=== PATIENT | female | born 1980 | race Caucasian/White ===

== ENCOUNTER 2016-07-21 06:34 | Emergency (ER) | payer OTHER ==
[~2016-07-21 06:34] MED LIST: /AUGM875TA; /PROM25SU; IBUP80TA PO; IMITREX50 PO; MAALSUS PO; MACR100C3 PO; MAXALT10 PO; MAXALYMLT1 PO; PERC5TAB8; PERCOCET PO; PHEN200T14 PO; PNV-CAP5 PO
[2016-07-21] MEDS ORDERED: ONDANSETRON 4MG/2ML VIAL (J2405) As Ordered ONE (07:38)
[2016-07-21] MEDS ORDERED: KETOROLAC 30 MG/ML VIAL (J1885) As Ordered ONE (07:38)
[2016-07-21 07:47] LABS: BASO % 0.8 % (0.0-1.0); EOS # 0.2 K/mm3 (0.0-0.50); EOS % 4.4 % (0.0-3.0); LARGE UNSTAINED CELL # 0.2 K/mm3 (0.0-0.4); LARGE UNSTAINED CELL % 2.8 % (0.0-4.0); LYMPH # 1.7 K/mm3 (1.5-4.5); LYMPH % 30.9 % (24.0-44.0); MEAN CORPUSCULAR HEMOGLOBIN 26.5 pg (27.0-33.0); MEAN CORPUSCULAR HGB CONC 31.6 g/dl (32.0-36.5); MEAN CORPUSCULAR VOLUME 83.8 fl (80.0-96.0); MONO # 0.3 K/mm3 (0.0-0.8); NEUTROPHILS # 3.1 K/mm3 (1.8-7.7); NEUTROPHILS % 55.2 % (36.0-66.0); PLATELET COUNT, AUTOMATED 211 k/mm3 (150-450); RED CELL DISTRIBUTION WIDTH 14.5 % (11.5-14.5); WHITE BLOOD COUNT 5.6 K/mm3 (4.0-10.0)
[2016-07-21 08:01] LABS: ANION GAP 5 MEQ/L (8-16); BLOOD UREA NITROGEN 12 MG/DL (7-18); CALCIUM LEVEL 8.2 MG/DL (8.5-10.1); CARBON DIOXIDE LEVEL 29 MEQ/L (21-32); CHLORIDE LEVEL 109 MEQ/L (98-107); CREATININE FOR GFR 0.64 MG/DL (0.55-1.02); GLOMERULAR FILTRATION RATE > 60.0 (>60); GLUCOSE, FASTING 91 MG/DL (70-105); POTASSIUM SERUM 3.7 MEQ/L (3.5-5.1); SODIUM LEVEL 143 MEQ/L (136-145)
--- NOTE | 2016-07-21 08:20 | REPUSA ---
CLINICAL HISTORY: Abdominal pain. TECHNIQUE: Multiple axial, sagittal and coronal CT images were obtained through the abdomen and pelvi s without administration of oral or IV contrast material. COMMENTS: Comparison is made to the prior exam performed on 01/03/2014. The liver is of uniform attenuation without mass or defect. There is no intra or extrahepatic biliary ductal dilatation. The spleen is normal. The gallbladder is surgically absent. The pancreas is of no rmal contour and attenuation characteristics. There is no evidence of adrenal mass. 2 obstructing stones in the distal aspect of the left ureter with the largest measuring 4.5 mm. Mild left hydroureteronephrosis. There is no evidence for appendicitis. There is no bowel wall thickening. No evidence for small or la rge bowel obstruction. There is no evidence of abdominal ascites or lymphadenopathy. There is no evidence of intrinsic or extrinsic bladder mass. There is no pelvic ascites or lymphadeno raymundo. Thickened bladder. Images of the lung bases show no evidence of pleural or parenchymal mass. There are no pleural effusi ons. The bony structures are free of lytic or blastic lesions. Multilevel degenerative changes are seen in volving the thoracolumbar spine. Scattered calcifications are seen involving the aorta and major branches compatible with atherosclero sis. IMPRESSION: 2 obstructing stones in the distal left ureter. Mild left hydroureteronephrosis. Surgically absent gallbladder. Left nephrolithiasis. Moderate large bowel fecal stasis. Thank you for your kind referral of this patient.
[2016-07-21 08:27] LABS: ALBUMIN 3.2 GM/DL (3.2-5.2); ALBUMIN/GLOBULIN RATIO 0.94 (1.00-1.93); ALKALINE PHOSPHATASE 50 U/L (45-117); ALT/SGPT 14 U/L (12-78); AST/SGOT 6 U/L (15-37); BILIRUBIN,DIRECT < 0.1 MG/DL (0.0-0.2); BILIRUBIN,TOTAL 0.4 MG/DL (0.2-1.0); TOTAL PROTEIN 6.6 GM/DL (6.4-8.2)
[2016-07-21] MEDS ORDERED: MORPHINE 4 MG/ML 1ML SYRINGE As Ordered ONE (08:47)
--- NOTE | 2016-07-21 09:50 | EDDOCDS ---
Physician Documentation [facility] Name: Perla Pantoja Age: 35 yrs Sex: Female : 1980 Arrival Date: 07/21/2016 Time: 06:34 Bed I5 / M5 Private MD: Disposition: 07/21/16 09:32 Discharged to Home/Self Care. Impression: Hydronephrosis with renal and ureteral calculous obstruction - 2 left distal ureteral stones, largest 4.5 mm. - Condition is Stable. - Discharge Instructions: Kidney Stones. - Prescriptions for Ibuprofen 800 mg Oral Tablet - take 1 tablet by ORAL route every 8 hours As needed take with food; 30 tablet. Percocet 5- 325 mg Oral Tablet - take 1 tablet by ORAL route every 6 hours As needed MDD: 4 tabs; 20 tablet. Flomax 0.4 mg Oral Capsule, Sust. Release 24 hr - take 1 capsule by ORAL route once daily 1/2 hour following the same meal each day; 30 capsule. ZOFRAN ODT 4 mg - dissolve 1 tablet by ORAL route 4 times per day As needed do not chew, do not swallow whole; 10 tablet. - Medication Reconciliation, Local Pharmacy Hours, Work Release Form - 1 day form. - Follow up: Chelsie Scales MD; When: Call to arrange an appointment; Reason: Recheck today's complaints. Follow up: Emergency Department; When: As needed; Reason: Worsening of conditions. - Problem is new. - Symptoms have improved. Historical: - Allergies: No known drug Allergies; - Home Meds: 1. none - PMHx: Kidney stones; - PSHx: ; Cholecystectomy; gall bladder stent; - Social history: Smoking status: Patient states was never smoker of tobacco. No barriers to communication noted, The patient speaks fluent Martiniquais, Speaks appropriately for age. - Family history: Not pertinent. - : The pt / caregiver states he / she is not on anticoagulants. Home medication list is obtained from the patient. 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 5 in. (165.10 cm); 08:13 BP 144 / 88; Pulse 66; Resp 20; Temp 98.0; Pulse Ox 99% ; Pain 6/10; jam1 09:24 BP 156 / 79; Pulse 65; Resp 18; Temp 97.0; Pulse Ox 99% ; Pain 4/10; jam1 06:43 Body Mass Index 39.94 (108.86 kg, 165.10 cm) cz MDM: 07:05 UCG by Nursing ordered. ar2 07:06 UA Ordered. EDMS 07:06 Urine Culture Ordered. EDMS 07:14 IV Saline Lock ordered. ar2 07:14 ketorolac 30 mg IVP once ordered. ar2 07:14 NS 0.9% 1000 ml IV at bolus once ordered. ar2 07:14 Ondansetron 4 mg IVP once ordered. ar2 07:15 CBC with Diff Ordered. EDMS 07:15 MED Profile Ordered. EDMS 07:15 CT ABD & PELVIS: No Contrast Ordered. EDMS 07:56 Financial registration complete. lg 08:07 CBC with Diff Reviewed. ar2 08:07 MED Profile Reviewed. ar2 08:07 UA Reviewed. ar2 08:17 LIPASE Ordered. EDMS 08:17 LIVER PROFILE Ordered. EDMS 08:38 MED Profile Reviewed. ar2 08:38 LIVER PROFILE Reviewed. ar2 08:38 LIPASE Reviewed. ar2 08:45 morphine 4 mg IVP once ordered. ar2 09:01 [facility] Payment Agreement was scanned into [employer] and attached to record. lg 09:31 Dispense Urine Strainer ordered. ar2 09:34 CT ABD & PELVIS: No Contrast Reviewed. ar2 Point of Care Testing: Urine : 07:19 hCG Reading: Negative; jam1 Ranges: Administered Medications: 07:42 Drug: ketorolac 30 mg [ketorolac 30 mg/mL (1 mL) injection solution (1 mL)] Route: IVP; dls Site: left antecubital; 09:49 Follow up: Response: No Adverse Reaction; Pain is decreased ttb 07:42 Drug: NS 0.9% 1000 ml [sodium chloride 0.9 % intravenous solution] Route: IV; Rate: dls bolus; Site: left antecubital; 09:49 Follow up: IV Status: Completed infusion; IV Intake: 1000ml ttb 07:42 Drug: Ondansetron 4 mg Route: IVP; Site: left antecubital; dls 09:49 Follow up: Response: Nausea is resolved; No Adverse Reaction ttb 08:52 Drug: morphine 4 mg [morphine 4 mg/mL intravenous cartridge (1 mL)] Route: IVP; Site: dls left antecubital; 09:48 Follow up: Response: Confirmed pt not driving.; No Adverse Reaction; Pain is decreased ttb Signatures: Dispatcher [employer] EDMS Lexa Wang RN RN cz Eric Oconnor, Don Reg lg Nish Campuzano PA-Graciela PA-Graciela ar2 Nova Mcgregor RN RN pml Conner, Teresa, RN RN ttb Scott, Debra RN dls The chart was reviewed and I authenticate all verbal orders and agree with the evaluation and treatment provided.Corrections: (The following items were deleted from the chart) 08:17 08:14 LIVER PROFILE+LAB ordered. EDMS EDMS 08:17 08:14 LIPASE+LAB ordered. EDMS EDMS Attachments: 09:01 [facility] Payment Agreement lg MTDD
--- NOTE | 2016-07-21 09:50 | EDDOCDS ---
Nurse's Notes [facility] Name: Perla Pantoja Age: 35 yrs Sex: Female : 1980 Arrival Date: 07/21/2016 Time: 06:34 Bed I5 / M5 Private MD: Diagnosis: Hydronephrosis with renal and ureteral calculous obstruction-2 left distal ureteral stones, largest 4.5 mm Presentation: 07/21 06:38 Presenting complaint: Patient states: she started with urethral area pain this morning cz pain began last night around 2300. pt states history of kidney stones last one around 7 months ago. Acute neurological deficits are not present. Mechanism of Injury: No Mechanism of Injury. Adult Sepsis Screening: The patient does not have new or worsening altered mentation. Patient's respiratory rate is less than 22. Systolic blood pressure is greater than 100. Patient has a qSOFA score of 0- Negative Sepsis Screen. Suicide/Homicide risk assessment- the patient denies having any suicidal and/or homicidal ideations and does not present with any other emotional, behavioral or mental health complaints. Status: Patient is not a custodial services manager or dependent. Transition of care: patient was not received from another setting of care. 06:38 Acuity: LIZETH Level 3 cz 06:38 Method Of Arrival: Walkin/Carried/Asstd cz Triage Assessment: 06:43 General: Appears distressed, uncomfortable. Pain: Location: pelvis Pain currently is 8 cz out of 10 on a pain scale. At worst was 9 out of 10 on a pain scale. HIV screening NA for this visit Offered previously. 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 none - PMHx: Kidney stones; - PSHx: ; Cholecystectomy; gall bladder stent; - Social history: Smoking status: Patient states was never smoker of tobacco. No barriers to communication noted, The patient speaks fluent Bahraini, Speaks appropriately for age. - Family history: Not pertinent. - : The pt / caregiver states he / she is not on anticoagulants. Home medication list is obtained from the patient. 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 Screenin:19 Screening information is obtained from the patient. Primary language is Bahraini. Fall jam1 risk: No risks identified. Assistance ADL's: requires no assistance with activities of daily living. Abuse/DV Screen: The patient / caregiver reports he/she is: not in a situation that causes fear, pain or injury. Nutritional screening: No deficits noted. Exposure Risk Screening: None identified. Advance Directives: Currently, there is no health care proxy. There is no active DNR order. There is no living will. There is no Power of Panel Instrument Repairer. Advance directive information has not previously been placed in an [facility] medical record. Further advance directive information is declined. home support is adequate. Assessment: 07:39 General: Appears in no apparent distress, comfortable, Behavior is appropriate for age, pml cooperative. Pain: Location: pelvis Pain currently is 9 out of 10 on a pain scale. Neurological: Level of Consciousness is awake, alert, Oriented to person, place, time. Cardiovascular: Capillary refill < 3 seconds. Respiratory: Airway is patent Respiratory effort is even, unlabored. GI: Abdomen is non- distended obese. GI: Reports nausea. : Reports pain when bladder is full - states "I can't hold onto any fluids". Derm: Skin is pink, warm & dry. Musculoskeletal: Circulation, motion, and sensation intact Capillary refill < 3 seconds. 08:53 General: Pts pain is 7/10 IV infusing well site clear re-medicated pt per order.. dls 09:46 Reassessment: Patient appears in no apparent distress at this time. Patient states ttb feeling better. Patient states symptoms have improved. pt given urine strainer. States she would prefer to pass on her own as she has done before. Comfortable going home. . General: Appears in no apparent distress. Neurological: Level of Consciousness is awake, alert. Respiratory: Airway is patent Respiratory effort is even, unlabored. GI: Denies nausea, vomiting. Vital Signs: 06:43 BP 133 / 72; Pulse 70; Resp 19; Temp 97.9; Pulse Ox 100% on R/A; Weight 108.86 kg; cz Height 5 ft. 5 in. (165.10 cm); 08:13 BP 144 / 88; Pulse 66; Resp 20; Temp 98.0; Pulse Ox 99% ; Pain 6/10; jam1 09:24 BP 156 / 79; Pulse 65; Resp 18; Temp 97.0; Pulse Ox 99% ; Pain 4/10; jam1 06:43 Body Mass Index 39.94 (108.86 kg, 165.10 cm) cz Vitals: 06:43 Log In Time: July 21, 2016 at 06:34. cz ED Course: 06:35 Patient visited by Suzanne Louis. gjb 06:35 Patient moved to Waiting gjb 06:38 Patient moved to Triage 1 cz 06:43 Triage Initiated cz 06:45 Patient moved to Pre RCE cz 06:58 Patient moved to I5 / M5 jam1 07:05 Pt greeted and oriented to ED. Patient advised of names of staff involved in care, jam1 location of call albert, wait times and NPO status. Patient has correct armband on for positive identification. Placed in gown. Bed in low position. Call light in reach. Side rails up X 1. Door closed. 07:10 Nish Campuzano PA-C is PHCP. ar2 07:10 Stephen Bales DO is Attending Physician. ar2 07:11 Attending Physician role handed off by Stephen Bales DO ar2 07:11 Sukh Wood MD is Attending Physician. ar2 07:11 Patient visited by Nish Campuzano PA-C. ar2 07:12 Urine Culture Sent. jam1 07:12 UA Sent. jam1 07:39 The patient / caregiver is instructed regarding the plan of care and ED course. pml 07:39 Inserted peripheral IV: 20gauge IV in left antecubital area and blood collected. pml Patient tolerated the procedure well. 07:40 Patient visited by Nova Mcgregor RN. pml 08:41 CT ABD & PELVIS: No Contrast Returned. EDMS 08:45 Patient visited by Ivette Boone RN. dls 09:00 Patient name changed from Perla\\S\\Lita\\S\\Pietramala\\S\\ to Perla\\S\\L\\S\\Pietramala. EDMS 09:01 [facility] Agreement was scanned into [employer] and attached to record. lg 09:31 Chelsie Scales MD is Referral Physician. ar2 09:46 Discontinued IV lock intact, bleeding controlled, pressure dressing applied, No ttb redness/swelling at site. No procedures done that require assistance. Labs drawn. (by ED staff). Urine collected. Clean catch specimen. Administered Medications: 07:42 Drug: ketorolac 30 mg [ketorolac 30 mg/mL (1 mL) injection solution (1 mL)] Route: IVP; dls Site: left antecubital; 09:49 Follow up: Response: No Adverse Reaction; Pain is decreased ttb 07:42 Drug: NS 0.9% 1000 ml [sodium chloride 0.9 % intravenous solution] Route: IV; Rate: dls bolus; Site: left antecubital; 09:49 Follow up: IV Status: Completed infusion; IV Intake: 1000ml ttb 07:42 Drug: Ondansetron 4 mg Route: IVP; Site: left antecubital; dls 09:49 Follow up: Response: Nausea is resolved; No Adverse Reaction ttb 08:52 Drug: morphine 4 mg [morphine 4 mg/mL intravenous cartridge (1 mL)] Route: IVP; Site: dls left antecubital; 09:48 Follow up: Response: Confirmed pt not driving.; No Adverse Reaction; Pain is decreased ttb Point of Care Testing: Urine : 07:19 hCG Reading: Negative; jam1 Ranges: Intake: 09:49 IV: 1000.00ml; Total: 1000.00ml. ttb Order Results: Lab Order: UA; SPEC'M 07/21/16 07:09 Test: APPEARANCE, URINE; Value: CLEAR; Range: CLEAR; Status: F Test: COLOR, URINE; Value: YELLOW; Range: YELLOW; Status: F Test: PH,URINE; Value: 6.0; Range: 5.0-9.0; Units: UNITS; Status: F Test: SPECIFIC GRAVITY URINE AUTO; Value: 1.018; Range: 1.002-1.035; Status: F Test: PROTEIN, URINE AUTO; Value: NEGATIVE; Range: NEGATIVE; Units: mg/dL; Status: F Test: GLUCOSE, URINE (UA) AUTO; Value: NEGATIVE; Range: NEGATIVE; Units: mg/dL; Status: F Test: KETONE, URINE AUTO; Value: NEGATIVE; Range: NEGATIVE; Units: mg/dL; Status: F Test: UROBILINOGEN, URINE AUTO; Value: 0.2; Range: 0.0-2.0; Units: mg/dL; Status: F Test: BILIRUBIN, URINE AUTO; Value: NEGATIVE; Range: NEGATIVE; Status: F Test: NITRITE, URINE AUTO; Value: NEGATIVE; Range: NEGATIVE; Status: F Test: LEUKOCYTE ESTERASE, URINE AUTO; Value: NEGATIVE; Range: NEGATIVE; Status: F Test: BLOOD, URINE BLOOD; Value: NEGATIVE; Range: NEGATIVE; Status: F Test: WBC, URINE AUTO; Value: 1; Range: 0-3; Units: /HPF; Status: F Test: RBC, URINE AUTO; Value: 3; Range: 0-3; Units: /HPF; Status: F Test: BACTERIA, URINE AUTO; Value: NEGATIVE; Range: NEGATIVE; Status: F Test: SQUAMOUS EPITHELIAL CELL UR AU; Value: 0; Range: 0-6; Units: /HPF; Status: F Test: MUCUS, URINE; Value: SMALL; Range: NEGATIVE; Status: F Test: HYALINE CAST, URINE AUTO; Value: 0; Range: 0-1; Units: /LPF; Status: F Lab Order: CBC with Diff; SPEC'M 07/21/16 07:38 Test: WHITE BLOOD COUNT; Value: 5.6; Range: 4.0-10.0; Units: K/mm3; Status: F Test: RED BLOOD COUNT; Value: 3.86; Range: 4.00-5.40; Abnormal: Below low normal; Units: M/mm3; Status: F Test: HEMOGLOBIN; Value: 10.3; Range: 12.0-16.0; Abnormal: Below low normal; Units: g/dl; Status: F Test: HEMATOCRIT; Value: 32.4; Range: 36.0-47.0; Abnormal: Below low normal; Units: %; Status: F Test: MEAN CORPUSCULAR VOLUME; Value: 83.8; Range: 80.0-96.0; Units: fl; Status: F Test: MEAN CORPUSCULAR HEMOGLOBIN; Value: 26.5; Range: 27.0-33.0; Abnormal: Below low normal; Units: pg; Status: F Test: MEAN CORPUSCULAR HGB CONC; Value: 31.6; Range: 32.0-36.5; Abnormal: Below low normal; Units: g/dl; Status: F Test: RED CELL DISTRIBUTION WIDTH; Value: 14.5; Range: 11.5-14.5; Units: %; Status: F Test: PLATELET COUNT, AUTOMATED; Value: 211; Range: 150-450; Units: k/mm3; Status: F Test: NEUTROPHILS %; Value: 55.2; Range: 36.0-66.0; Units: %; Status: F Test: LYMPH %; Value: 30.9; Range: 24.0-44.0; Units: %; Status: F Test: MONO %; Value: 6.0; Range: 0.0-5.0; Abnormal: Above high normal; Units: %; Status: F Test: EOS %; Value: 4.4; Range: 0.0-3.0; Abnormal: Above high normal; Units: %; Status: F Test: BASO %; Value: 0.8; Range: 0.0-1.0; Units: %; Status: F Test: LARGE UNSTAINED CELL %; Value: 2.8; Range: 0.0-4.0; Units: %; Status: F Test: NEUTROPHILS #; Value: 3.1; Range: 1.8-7.7; Units: K/mm3; Status: F Test: LYMPH #; Value: 1.7; Range: 1.5-4.5; Units: K/mm3; Status: F Test: MONO #; Value: 0.3; Range: 0.0-0.8; Units: K/mm3; Status: F Test: EOS #; Value: 0.2; Range: 0.0-0.50; Units: K/mm3; Status: F Test: BASO #; Value: 0.0; Range: 0.0-0.2; Units: K/mm3; Status: F Test: LARGE UNSTAINED CELL #; Value: 0.2; Range: 0.0-0.4; Units: K/mm3; Status: F Lab Order: MED Profile; SPEC'M 07/21/16 07:38 Test: GLUCOSE, FASTING; Value: 91; Range: 70-105; Units: MG/DL; Status: F Test: BLOOD UREA NITROGEN; Value: 12; Range: 7-18; Units: MG/DL; Status: F Test: CREATININE FOR GFR; Value: 0.64; Range: 0.55-1.02; Units: MG/DL; Status: F Test: GLOMERULAR FILTRATION RATE; Value: > 60.0; Range: >60; Status: F Test: SODIUM LEVEL; Value: 143; Range: 136-145; Units: MEQ/L; Status: F Test: POTASSIUM SERUM; Value: 3.7; Range: 3.5-5.1; Units: MEQ/L; Status: F Test: CHLORIDE LEVEL; Value: 109; Range: 98-107; Abnormal: Above high normal; Units: MEQ/L; Status: F Test: CARBON DIOXIDE LEVEL; Value: 29; Range: 21-32; Units: MEQ/L; Status: F Test: ANION GAP; Value: 5; Range: 8-16; Abnormal: Below low normal; Units: MEQ/L; Status: F Test: CALCIUM LEVEL; Value: 8.2; Range: 8.5-10.1; Abnormal: Below low normal; Units: MG/DL; Status: F Test Note: ; Units are mL/min/1.73 m2 Chronic Kidney Disease Staging per NKF: Stage I & II GFR >=60 Normal to Mildly Decreased Stage III GFR 30-59 Moderately Decreased Stage IV GFR 15-29 Severely Decreased Stage V GFR <15 Very Little GFR Left ESRD GFR <15 on FORCE DISPATCHER Lab Order: LIPASE; SPEC'M 07/21/16 07:38 Test: LIPASE; Value: 193; Range: 73-393; Units: U/L; Status: F Lab Order: LIVER PROFILE; SPEC'M 07/21/16 07:38 Test: AST/SGOT; Value: 6; Range: 15-37; Abnormal: Below low normal; Units: U/L; Status: F Test: ALT/SGPT; Value: 14; Range: 12-78; Units: U/L; Status: F Test: ALKALINE PHOSPHATASE; Value: 50; Range: 45-117; Units: U/L; Status: F Test: BILIRUBIN,TOTAL; Value: 0.4; Range: 0.2-1.0; Units: MG/DL; Status: F Test: BILIRUBIN,DIRECT; Value: < 0.1; Range: 0.0-0.2; Units: MG/DL; Status: F Test: TOTAL PROTEIN; Value: 6.6; Range: 6.4-8.2; Units: GM/DL; Status: F Test: ALBUMIN; Value: 3.2; Range: 3.2-5.2; Units: GM/DL; Status: F Test: ALBUMIN/GLOBULIN RATIO; Value: 0.94; Range: 1.00-1.93; Abnormal: Below low normal; Status: F Radiology Order: CT ABD & PELVIS: No Contrast Test: CT ABD & PELVIS: No Contrast REASON FOR EXAMINATION: Renal colic; ; CLINICAL HISTORY: Abdominal pain.; TECHNIQUE: Multiple axial, sagittal and coronal CT images were obtained through the abdomen and pelvi; s without administration of oral or IV contrast material.; COMMENTS:; Comparison is made to the prior exam performed on 01/03/2014.; The liver is of uniform attenuation without mass or defect. There is no intra or extrahepatic biliary; ductal dilatation. The spleen is normal. The gallbladder is surgically absent. The pancreas is of no; rmal contour and attenuation characteristics. There is no evidence of adrenal mass.; 2 obstructing stones in the distal aspect of the left ureter with the largest measuring 4.5 mm. Mild; left hydroureteronephrosis.; There is no evidence for appendicitis. There is no bowel wall thickening. No evidence for small or la; rge bowel obstruction. There is no evidence of abdominal ascites or lymphadenopathy.; There is no evidence of intrinsic or extrinsic bladder mass. There is no pelvic ascites or lymphadeno; raymundo. Thickened bladder.; Images of the lung bases show no evidence of pleural or parenchymal mass. There are no pleural effusi; ons.; The bony structures are free of lytic or blastic lesions. Multilevel degenerative changes are seen in; volving the thoracolumbar spine.; Scattered calcifications are seen involving the aorta and major branches compatible with atherosclero; sis.; IMPRESSION:; 2 obstructing stones in the distal left ureter.; Mild left hydroureteronephrosis.; Surgically absent gallbladder.; Left nephrolithiasis.; Moderate large bowel fecal stasis.; Thank you for your kind referral of this patient.; ; Outcome: 09:32 Discharge ordered by Provider. ar2 09:46 Discharge Assessment: Patient awake, alert and oriented x 3. No cognitive and/or ttb functional deficits noted. Patient verbalized understanding of disposition instructions. Patient awake and alert. patient administered narcotics - yes. Pt provided with safe discharge. The following High Risk Discharge criteria are identified: None. Discharged to home ambulatory. Condition: good Condition: stable Condition: improved. Discharge instructions given to patient, Instructed on discharge instructions, follow up and referral plans. medication usage, no driving heavy equipment, diet, no drinking with medication, Demonstrated understanding of instructions, medications, no d/d with narcs, increase fluid intake, strain urine. Pt was receptive of discharge instructions/ teaching. Prescriptions given X 4, Work note provided to patient. CT Study completed. Property :Personal belongings accompany Pt. 09:49 Patient left the ED. ttb Signatures: Dispatcher [employer] EDIvette Engle RN RN dls Zecher, Calvin, RN RN cz Murphy, Jane, SENIOR SUSTAINABILITY CONSULTANT SENIOR SUSTAINABILITY CONSULTANT jam1 Eric Oconnor, Reg Reg lg Nish Campuzano, PA-C PA-C [email or web address] Nova Mcgregor RN RN pml Conner, Teresa, RN RN ttSuzanne Hernández ISABELLE
--- NOTE | 2016-07-23 10:51 | EDDOCDS ---
Physician Documentation [facility] Name: Perla Pantoja Age: 35 yrs Sex: Female : 1980 Arrival Date: 07/21/2016 Time: 06:34 Bed I5 / M5 Private MD: Disposition: 07/21/16 09:32 Discharged to Home/Self Care. Impression: Hydronephrosis with renal and ureteral calculous obstruction - 2 left distal ureteral stones, largest 4.5 mm. - Condition is Stable. - Discharge Instructions: Kidney Stones. - Prescriptions for Ibuprofen 800 mg Oral Tablet - take 1 tablet by ORAL route every 8 hours As needed take with food; 30 tablet. Percocet 5- 325 mg Oral Tablet - take 1 tablet by ORAL route every 6 hours As needed MDD: 4 tabs; 20 tablet. Flomax 0.4 mg Oral Capsule, Sust. Release 24 hr - take 1 capsule by ORAL route once daily 1/2 hour following the same meal each day; 30 capsule. ZOFRAN ODT 4 mg - dissolve 1 tablet by ORAL route 4 times per day As needed do not chew, do not swallow whole; 10 tablet. - Medication Reconciliation, Local Pharmacy Hours, Work Release Form - 1 day form. - Follow up: Chelsie Scales MD; When: Call to arrange an appointment; Reason: Recheck today's complaints. Follow up: Emergency Department; When: As needed; Reason: Worsening of conditions. - Problem is new. - Symptoms have improved. Historical: - Allergies: No known drug Allergies; - Home Meds: 1. none - PMHx: Kidney stones; - PSHx: ; Cholecystectomy; gall bladder stent; - Social history: Smoking status: Patient states was never smoker of tobacco. No barriers to communication noted, The patient speaks fluent Lebanese, Speaks appropriately for age. - Family history: Not pertinent. - : The pt / caregiver states he / she is not on anticoagulants. Home medication list is obtained from the patient. 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 5 in. (165.10 cm); 08:13 BP 144 / 88; Pulse 66; Resp 20; Temp 98.0; Pulse Ox 99% ; Pain 6/10; jam1 09:24 BP 156 / 79; Pulse 65; Resp 18; Temp 97.0; Pulse Ox 99% ; Pain 4/10; jam1 06:43 Body Mass Index 39.94 (108.86 kg, 165.10 cm) cz MDM: 07:05 UCG by Nursing ordered. ar2 07:06 UA Ordered. EDMS 07:06 Urine Culture Ordered. EDMS 07:14 IV Saline Lock ordered. ar2 07:14 ketorolac 30 mg IVP once ordered. ar2 07:14 NS 0.9% 1000 ml IV at bolus once ordered. ar2 07:14 Ondansetron 4 mg IVP once ordered. ar2 07:15 CBC with Diff Ordered. EDMS 07:15 MED Profile Ordered. EDMS 07:15 CT ABD & PELVIS: No Contrast Ordered. EDMS 07:56 Financial registration complete. lg 08:07 CBC with Diff Reviewed. ar2 08:07 MED Profile Reviewed. ar2 08:07 UA Reviewed. ar2 08:17 LIPASE Ordered. EDMS 08:17 LIVER PROFILE Ordered. EDMS 08:38 MED Profile Reviewed. ar2 08:38 LIVER PROFILE Reviewed. ar2 08:38 LIPASE Reviewed. ar2 08:45 morphine 4 mg IVP once ordered. ar2 09:01 [facility] [place] Payment Agreement was scanned into [employer] and attached to record. lg 09:31 Dispense Urine Strainer ordered. ar2 09:34 CT ABD & PELVIS: No Contrast Reviewed. ar2 17:19 Radiology Report was scanned into [employer] and attached to record. kf3 20:45 T-Sheet-- Draft Copy was scanned into [employer] and attached to record. klr 07/23 07:29 Urine Culture Reviewed. sd1 Point of Care Testing: Urine : 07/21 07:19 hCG Reading: Negative; jam1 Ranges: Administered Medications: 07:42 Drug: ketorolac 30 mg [ketorolac 30 mg/mL (1 mL) injection solution (1 mL)] Route: IVP; dls Site: left antecubital; 09:49 Follow up: Response: No Adverse Reaction; Pain is decreased ttb 07:42 Drug: NS 0.9% 1000 ml [sodium chloride 0.9 % intravenous solution] Route: IV; Rate: dls bolus; Site: left antecubital; 09:49 Follow up: IV Status: Completed infusion; IV Intake: 1000ml ttb 07:42 Drug: Ondansetron 4 mg Route: IVP; Site: left antecubital; dls 09:49 Follow up: Response: Nausea is resolved; No Adverse Reaction ttb 08:52 Drug: morphine 4 mg [morphine 4 mg/mL intravenous cartridge (1 mL)] Route: IVP; Site: dls left antecubital; 09:48 Follow up: Response: Confirmed pt not driving.; No Adverse Reaction; Pain is decreased ttb Signatures: Dispatcher [employer] EDMS Queta Moore MD MD sd1 Lexa Wang RN RN cz Eric Oconnor, Reg Reg lg Stanton Condon, Reg Reg kf3 Nish Campuzano PASarah PASarah ar2 Nova Mcgregor RN RN pml Conner, Teresa, RN RN ttb Redder, Kathie klr Scott, Debra RN dls The chart was reviewed and I authenticate all verbal orders and agree with the evaluation and treatment provided.Corrections: (The following items were deleted from the chart) 08:17 08:14 LIVER PROFILE+LAB ordered. EDMS EDMS 08:17 08:14 LIPASE+LAB ordered. EDMS EDMS Attachments: 09:01 [facility] Payment Agreement lg 20:45 T-Sheet-- Draft Copy klr Chart Complete MTDD
--- NOTE | 2016-07-23 10:51 | EDDOCDS ---
Physician Documentation [facility] Name: Perla Pantoja Age: 35 yrs Sex: Female : 1980 Arrival Date: 07/21/2016 Time: 06:34 Bed I5 / M5 Private MD: Disposition: 07/21/16 09:32 Discharged to Home/Self Care. Impression: Hydronephrosis with renal and ureteral calculous obstruction - 2 left distal ureteral stones, largest 4.5 mm. - Condition is Stable. - Discharge Instructions: Kidney Stones. - Prescriptions for Ibuprofen 800 mg Oral Tablet - take 1 tablet by ORAL route every 8 hours As needed take with food; 30 tablet. Percocet 5- 325 mg Oral Tablet - take 1 tablet by ORAL route every 6 hours As needed MDD: 4 tabs; 20 tablet. Flomax 0.4 mg Oral Capsule, Sust. Release 24 hr - take 1 capsule by ORAL route once daily 1/2 hour following the same meal each day; 30 capsule. ZOFRAN ODT 4 mg - dissolve 1 tablet by ORAL route 4 times per day As needed do not chew, do not swallow whole; 10 tablet. - Medication Reconciliation, Local Pharmacy Hours, Work Release Form - 1 day form. - Follow up: Chelsie Scales MD; When: Call to arrange an appointment; Reason: Recheck today's complaints. Follow up: Emergency Department; When: As needed; Reason: Worsening of conditions. - Problem is new. - Symptoms have improved. Historical: - Allergies: No known drug Allergies; - Home Meds: 1. none - PMHx: Kidney stones; - PSHx: ; Cholecystectomy; gall bladder stent; - Social history: Smoking status: Patient states was never smoker of tobacco. No barriers to communication noted, The patient speaks fluent Faroese, Speaks appropriately for age. - Family history: Not pertinent. - : The pt / caregiver states he / she is not on anticoagulants. Home medication list is obtained from the patient. 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 5 in. (165.10 cm); 08:13 BP 144 / 88; Pulse 66; Resp 20; Temp 98.0; Pulse Ox 99% ; Pain 6/10; jam1 09:24 BP 156 / 79; Pulse 65; Resp 18; Temp 97.0; Pulse Ox 99% ; Pain 4/10; jam1 06:43 Body Mass Index 39.94 (108.86 kg, 165.10 cm) cz MDM: 07:05 UCG by Nursing ordered. ar2 07:06 UA Ordered. EDMS 07:06 Urine Culture Ordered. EDMS 07:14 IV Saline Lock ordered. ar2 07:14 ketorolac 30 mg IVP once ordered. ar2 07:14 NS 0.9% 1000 ml IV at bolus once ordered. ar2 07:14 Ondansetron 4 mg IVP once ordered. ar2 07:15 CBC with Diff Ordered. EDMS 07:15 MED Profile Ordered. EDMS 07:15 CT ABD & PELVIS: No Contrast Ordered. EDMS 07:56 Financial registration complete. lg 08:07 CBC with Diff Reviewed. ar2 08:07 MED Profile Reviewed. ar2 08:07 UA Reviewed. ar2 08:17 LIPASE Ordered. EDMS 08:17 LIVER PROFILE Ordered. EDMS 08:38 MED Profile Reviewed. ar2 08:38 LIVER PROFILE Reviewed. ar2 08:38 LIPASE Reviewed. ar2 08:45 morphine 4 mg IVP once ordered. ar2 09:01 [facility] [place] Payment Agreement was scanned into [employer] and attached to record. lg 09:31 Dispense Urine Strainer ordered. ar2 09:34 CT ABD & PELVIS: No Contrast Reviewed. ar2 17:19 Radiology Report was scanned into [employer] and attached to record. kf3 20:45 T-Sheet-- Draft Copy was scanned into [employer] and attached to record. klr 07/23 07:29 Urine Culture Reviewed. sd1 Point of Care Testing: Urine : 07/21 07:19 hCG Reading: Negative; jam1 Ranges: Administered Medications: 07:42 Drug: ketorolac 30 mg [ketorolac 30 mg/mL (1 mL) injection solution (1 mL)] Route: IVP; dls Site: left antecubital; 09:49 Follow up: Response: No Adverse Reaction; Pain is decreased ttb 07:42 Drug: NS 0.9% 1000 ml [sodium chloride 0.9 % intravenous solution] Route: IV; Rate: dls bolus; Site: left antecubital; 09:49 Follow up: IV Status: Completed infusion; IV Intake: 1000ml ttb 07:42 Drug: Ondansetron 4 mg Route: IVP; Site: left antecubital; dls 09:49 Follow up: Response: Nausea is resolved; No Adverse Reaction ttb 08:52 Drug: morphine 4 mg [morphine 4 mg/mL intravenous cartridge (1 mL)] Route: IVP; Site: dls left antecubital; 09:48 Follow up: Response: Confirmed pt not driving.; No Adverse Reaction; Pain is decreased ttb Signatures: Dispatcher [employer] EDMS Queta Moore MD MD sd1 Lexa Wang RN RN cz Eric Oconnor, Reg Reg lg Stanton Condon, Reg Reg kf3 Nish Campuzano PASarah PASarah ar2 Nova Mcgregor RN RN pml Conner, Teresa, RN RN ttb Redder, Kathie klr Scott, Debra RN dls The chart was reviewed and I authenticate all verbal orders and agree with the evaluation and treatment provided.Corrections: (The following items were deleted from the chart) 08:17 08:14 LIVER PROFILE+LAB ordered. EDMS EDMS 08:17 08:14 LIPASE+LAB ordered. EDMS EDMS Attachments: 09:01 [facility] Payment Agreement lg 20:45 T-Sheet-- Draft Copy klr Chart Complete MTDD
--- NOTE | 2016-07-23 10:51 | EDDOCDS ---
Nurse's Notes [facility] Name: Perla Pantoja Age: 35 yrs Sex: Female : 1980 Arrival Date: 07/21/2016 Time: 06:34 Bed I5 / M5 Private MD: Diagnosis: Hydronephrosis with renal and ureteral calculous obstruction-2 left distal ureteral stones, largest 4.5 mm Presentation: 07/21 06:38 Presenting complaint: Patient states: she started with urethral area pain this morning cz pain began last night around 2300. pt states history of kidney stones last one around 7 months ago. Acute neurological deficits are not present. Mechanism of Injury: No Mechanism of Injury. Adult Sepsis Screening: The patient does not have new or worsening altered mentation. Patient's respiratory rate is less than 22. Systolic blood pressure is greater than 100. Patient has a qSOFA score of 0- Negative Sepsis Screen. Suicide/Homicide risk assessment- the patient denies having any suicidal and/or homicidal ideations and does not present with any other emotional, behavioral or mental health complaints. 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 Transition of care: patient was not received from another setting of care. 06:38 Acuity: LIZETH Level 3 cz 06:38 Method Of Arrival: Walkin/Carried/Asstd cz Triage Assessment: 06:43 General: Appears distressed, uncomfortable. Pain: Location: pelvis Pain currently is 8 cz out of 10 on a pain scale. At worst was 9 out of 10 on a pain scale. HIV screening NA for this visit Offered previously. 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 none - PMHx: Kidney stones; - PSHx: ; Cholecystectomy; gall bladder stent; - Social history: Smoking status: Patient states was never smoker of tobacco. No barriers to communication noted, The patient speaks fluent Serbian, Speaks appropriately for age. - Family history: Not pertinent. - : The pt / caregiver states he / she is not on anticoagulants. Home medication list is obtained from the patient. 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 Screenin:19 Screening information is obtained from the patient. Primary language is Serbian. Fall jam1 risk: No risks identified. Assistance ADL's: requires no assistance with activities of daily living. Abuse/DV Screen: The patient / caregiver reports he/she is: not in a situation that causes fear, pain or injury. Nutritional screening: No deficits noted. Exposure Risk Screening: None identified. Advance Directives: Currently, there is no health care proxy. There is no active DNR order. There is no living will. There is no Power of Boat Washer. Advance directive information has not previously been placed in an [facility] medical record. Further advance directive information is declined. home support is adequate. Assessment: 07:39 General: Appears in no apparent distress, comfortable, Behavior is appropriate for age, pml cooperative. Pain: Location: pelvis Pain currently is 9 out of 10 on a pain scale. Neurological: Level of Consciousness is awake, alert, Oriented to person, place, time. Cardiovascular: Capillary refill < 3 seconds. Respiratory: Airway is patent Respiratory effort is even, unlabored. GI: Abdomen is non- distended obese. GI: Reports nausea. : Reports pain when bladder is full - states "I can't hold onto any fluids". Derm: Skin is pink, warm & dry. Musculoskeletal: Circulation, motion, and sensation intact Capillary refill < 3 seconds. 08:53 General: Pts pain is 7/10 IV infusing well site clear re-medicated pt per order.. dls 09:46 Reassessment: Patient appears in no apparent distress at this time. Patient states ttb feeling better. Patient states symptoms have improved. pt given urine strainer. States she would prefer to pass on her own as she has done before. Comfortable going home. . General: Appears in no apparent distress. Neurological: Level of Consciousness is awake, alert. Respiratory: Airway is patent Respiratory effort is even, unlabored. GI: Denies nausea, vomiting. Vital Signs: 06:43 BP 133 / 72; Pulse 70; Resp 19; Temp 97.9; Pulse Ox 100% on R/A; Weight 108.86 kg; cz Height 5 ft. 5 in. (165.10 cm); 08:13 BP 144 / 88; Pulse 66; Resp 20; Temp 98.0; Pulse Ox 99% ; Pain 6/10; jam1 09:24 BP 156 / 79; Pulse 65; Resp 18; Temp 97.0; Pulse Ox 99% ; Pain 4/10; jam1 06:43 Body Mass Index 39.94 (108.86 kg, 165.10 cm) cz Vitals: 06:43 Log In Time: July 21, 2016 at 06:34. cz ED Course: 06:35 Patient visited by Suzanne Louis. gjb 06:35 Patient moved to Waiting gjb 06:38 Patient moved to Triage 1 cz 06:43 Triage Initiated cz 06:45 Patient moved to Pre RCE cz 06:58 Patient moved to I5 / M5 jam1 07:05 Pt greeted and oriented to ED. Patient advised of names of staff involved in care, jam1 location of call albert, wait times and NPO status. Patient has correct armband on for positive identification. Placed in gown. Bed in low position. Call light in reach. Side rails up X 1. Door closed. 07:10 Nish Campuzano PA-C is PHCP. ar2 07:10 Stephen Bales DO is Attending Physician. ar2 07:11 Attending Physician role handed off by Stephen Bales DO ar2 07:11 Sukh Wood MD is Attending Physician. ar2 07:11 Patient visited by Nish Campuzano PA-C. ar2 07:12 Urine Culture Sent. jam1 07:12 UA Sent. jam1 07:39 The patient / caregiver is instructed regarding the plan of care and ED course. pml 07:39 Inserted peripheral IV: 20gauge IV in left antecubital area and blood collected. pml Patient tolerated the procedure well. 07:40 Patient visited by Nova Mcgregor RN. pml 08:41 CT ABD & PELVIS: No Contrast Returned. EDMS 08:45 Patient visited by Ivette Boone RN. dls 09:00 Patient name changed from Perla\\S\\Lita\\S\\Pietramala\\S\\ to Perla\\S\\L\\S\\Pietramala. EDMS 09:01 [facility] Payment Agreement was scanned into [employer] and attached to record. lg 09:31 Chelsie Scales MD is Referral Physician. ar2 09:46 Discontinued IV lock intact, bleeding controlled, pressure dressing applied, No ttb redness/swelling at site. No procedures done that require assistance. Labs drawn. (by ED staff). Urine collected. Clean catch specimen. 17:19 Radiology Report was scanned into [employer] and attached to record. kf3 20:45 T-Sheet-- Draft Copy was scanned into [employer] and attached to record. klr Administered Medications: 07:42 Drug: ketorolac 30 mg [ketorolac 30 mg/mL (1 mL) injection solution (1 mL)] Route: IVP; dls Site: left antecubital; 09:49 Follow up: Response: No Adverse Reaction; Pain is decreased ttb 07:42 Drug: NS 0.9% 1000 ml [sodium chloride 0.9 % intravenous solution] Route: IV; Rate: dls bolus; Site: left antecubital; 09:49 Follow up: IV Status: Completed infusion; IV Intake: 1000ml ttb 07:42 Drug: Ondansetron 4 mg Route: IVP; Site: left antecubital; dls 09:49 Follow up: Response: Nausea is resolved; No Adverse Reaction ttb 08:52 Drug: morphine 4 mg [morphine 4 mg/mL intravenous cartridge (1 mL)] Route: IVP; Site: dls left antecubital; 09:48 Follow up: Response: Confirmed pt not driving.; No Adverse Reaction; Pain is decreased ttb Point of Care Testing: Urine : 07:19 hCG Reading: Negative; jam1 Ranges: Intake: 09:49 IV: 1000.00ml; Total: 1000.00ml. ttb Order Results: Lab Order: UA; SPEC'M 07/21/16 07:09 Test: APPEARANCE, URINE; Value: CLEAR; Range: CLEAR; Status: F Test: COLOR, URINE; Value: YELLOW; Range: YELLOW; Status: F Test: PH,URINE; Value: 6.0; Range: 5.0-9.0; Units: UNITS; Status: F Test: SPECIFIC GRAVITY URINE AUTO; Value: 1.018; Range: 1.002-1.035; Status: F Test: PROTEIN, URINE AUTO; Value: NEGATIVE; Range: NEGATIVE; Units: mg/dL; Status: F Test: GLUCOSE, URINE (UA) AUTO; Value: NEGATIVE; Range: NEGATIVE; Units: mg/dL; Status: F Test: KETONE, URINE AUTO; Value: NEGATIVE; Range: NEGATIVE; Units: mg/dL; Status: F Test: UROBILINOGEN, URINE AUTO; Value: 0.2; Range: 0.0-2.0; Units: mg/dL; Status: F Test: BILIRUBIN, URINE AUTO; Value: NEGATIVE; Range: NEGATIVE; Status: F Test: NITRITE, URINE AUTO; Value: NEGATIVE; Range: NEGATIVE; Status: F Test: LEUKOCYTE ESTERASE, URINE AUTO; Value: NEGATIVE; Range: NEGATIVE; Status: F Test: BLOOD, URINE BLOOD; Value: NEGATIVE; Range: NEGATIVE; Status: F Test: WBC, URINE AUTO; Value: 1; Range: 0-3; Units: /HPF; Status: F Test: RBC, URINE AUTO; Value: 3; Range: 0-3; Units: /HPF; Status: F Test: BACTERIA, URINE AUTO; Value: NEGATIVE; Range: NEGATIVE; Status: F Test: SQUAMOUS EPITHELIAL CELL UR AU; Value: 0; Range: 0-6; Units: /HPF; Status: F Test: MUCUS, URINE; Value: SMALL; Range: NEGATIVE; Status: F Test: HYALINE CAST, URINE AUTO; Value: 0; Range: 0-1; Units: /LPF; Status: F Lab Order: Urine Culture; SPEC'M 07/21/16 07:09 Test: URINE CULTURE; Value: <EXTERNAL COMMENT eCWMed> FULL REPORT IN LAB NOTES (eCW and Medent).; Status: F Test: URINE CULTURE; Value: ORGANISM 1: STREP AGALACTIAE GROUP B; Status: F Test: URINE CULTURE; Value: STREP AGALACTIAE GROUP B; Status: F Test: URINE CULTURE; Value: COLONY COUNT CFU/ml 40,000; Status: F Test: URINE CULTURE; Value: GRAM POS SENSI - ST02; Status: F Test: URINE CULTURE; Value: Method: VIT2; Status: F Test: URINE CULTURE; Value: ICR (INDUCIBLE CC RESISTANCE) -; Status: F Test: URINE CULTURE; Value: TETRACYCLINE >=16 R; Status: F Test: URINE CULTURE; Value: PENICILLIN G <=0.06 S; Status: F Test: URINE CULTURE; Value: TRIMETHOPRIM/SULFAMETHOXAZOLE <=10 S; Status: F Test: URINE CULTURE; Value: AMPICILLIN <=0.25 S; Status: F Test: URINE CULTURE; Value: ERYTHROMYCIN >=8 R; Status: F Test: URINE CULTURE; Value: LEVOFLOXACIN 1 S; Status: F Test: URINE CULTURE; Value: VANCOMYCIN 0.5 S; Status: F Test: URINE CULTURE; Value: MOXIFLOXACIN (AVELOX) 0.12 S; Status: F Test: URINE CULTURE; Value: CEFTRIAXONE <=0.12 S; Status: F Test: URINE CULTURE; Value: CEFOTAXIME <=0.12 S; Status: F Lab Order: CBC with Diff; SPEC'M 07/21/16 07:38 Test: WHITE BLOOD COUNT; Value: 5.6; Range: 4.0-10.0; Units: K/mm3; Status: F Test: RED BLOOD COUNT; Value: 3.86; Range: 4.00-5.40; Abnormal: Below low normal; Units: M/mm3; Status: F Test: HEMOGLOBIN; Value: 10.3; Range: 12.0-16.0; Abnormal: Below low normal; Units: g/dl; Status: F Test: HEMATOCRIT; Value: 32.4; Range: 36.0-47.0; Abnormal: Below low normal; Units: %; Status: F Test: MEAN CORPUSCULAR VOLUME; Value: 83.8; Range: 80.0-96.0; Units: fl; Status: F Test: MEAN CORPUSCULAR HEMOGLOBIN; Value: 26.5; Range: 27.0-33.0; Abnormal: Below low normal; Units: pg; Status: F Test: MEAN CORPUSCULAR HGB CONC; Value: 31.6; Range: 32.0-36.5; Abnormal: Below low normal; Units: g/dl; Status: F Test: RED CELL DISTRIBUTION WIDTH; Value: 14.5; Range: 11.5-14.5; Units: %; Status: F Test: PLATELET COUNT, AUTOMATED; Value: 211; Range: 150-450; Units: k/mm3; Status: F Test: NEUTROPHILS %; Value: 55.2; Range: 36.0-66.0; Units: %; Status: F Test: LYMPH %; Value: 30.9; Range: 24.0-44.0; Units: %; Status: F Test: MONO %; Value: 6.0; Range: 0.0-5.0; Abnormal: Above high normal; Units: %; Status: F Test: EOS %; Value: 4.4; Range: 0.0-3.0; Abnormal: Above high normal; Units: %; Status: F Test: BASO %; Value: 0.8; Range: 0.0-1.0; Units: %; Status: F Test: LARGE UNSTAINED CELL %; Value: 2.8; Range: 0.0-4.0; Units: %; Status: F Test: NEUTROPHILS #; Value: 3.1; Range: 1.8-7.7; Units: K/mm3; Status: F Test: LYMPH #; Value: 1.7; Range: 1.5-4.5; Units: K/mm3; Status: F Test: MONO #; Value: 0.3; Range: 0.0-0.8; Units: K/mm3; Status: F Test: EOS #; Value: 0.2; Range: 0.0-0.50; Units: K/mm3; Status: F Test: BASO #; Value: 0.0; Range: 0.0-0.2; Units: K/mm3; Status: F Test: LARGE UNSTAINED CELL #; Value: 0.2; Range: 0.0-0.4; Units: K/mm3; Status: F Lab Order: MED Profile; SPEC'M 07/21/16 07:38 Test: GLUCOSE, FASTING; Value: 91; Range: 70-105; Units: MG/DL; Status: F Test: BLOOD UREA NITROGEN; Value: 12; Range: 7-18; Units: MG/DL; Status: F Test: CREATININE FOR GFR; Value: 0.64; Range: 0.55-1.02; Units: MG/DL; Status: F Test: GLOMERULAR FILTRATION RATE; Value: > 60.0; Range: >60; Status: F Test: SODIUM LEVEL; Value: 143; Range: 136-145; Units: MEQ/L; Status: F Test: POTASSIUM SERUM; Value: 3.7; Range: 3.5-5.1; Units: MEQ/L; Status: F Test: CHLORIDE LEVEL; Value: 109; Range: 98-107; Abnormal: Above high normal; Units: MEQ/L; Status: F Test: CARBON DIOXIDE LEVEL; Value: 29; Range: 21-32; Units: MEQ/L; Status: F Test: ANION GAP; Value: 5; Range: 8-16; Abnormal: Below low normal; Units: MEQ/L; Status: F Test: CALCIUM LEVEL; Value: 8.2; Range: 8.5-10.1; Abnormal: Below low normal; Units: MG/DL; Status: F Test Note: ; Units are mL/min/1.73 m2 Chronic Kidney Disease Staging per NKF: Stage I & II GFR >=60 Normal to Mildly Decreased Stage III GFR 30-59 Moderately Decreased Stage IV GFR 15-29 Severely Decreased Stage V GFR <15 Very Little GFR Left ESRD GFR <15 on [employer] Lab Order: LIPASE; SPEC'M 07/21/16 07:38 Test: LIPASE; Value: 193; Range: 73-393; Units: U/L; Status: F Lab Order: LIVER PROFILE; SPEC'M 07/21/16 07:38 Test: AST/SGOT; Value: 6; Range: 15-37; Abnormal: Below low normal; Units: U/L; Status: F Test: ALT/SGPT; Value: 14; Range: 12-78; Units: U/L; Status: F Test: ALKALINE PHOSPHATASE; Value: 50; Range: 45-117; Units: U/L; Status: F Test: BILIRUBIN,TOTAL; Value: 0.4; Range: 0.2-1.0; Units: MG/DL; Status: F Test: BILIRUBIN,DIRECT; Value: < 0.1; Range: 0.0-0.2; Units: MG/DL; Status: F Test: TOTAL PROTEIN; Value: 6.6; Range: 6.4-8.2; Units: GM/DL; Status: F Test: ALBUMIN; Value: 3.2; Range: 3.2-5.2; Units: GM/DL; Status: F Test: ALBUMIN/GLOBULIN RATIO; Value: 0.94; Range: 1.00-1.93; Abnormal: Below low normal; Status: F Radiology Order: CT ABD & PELVIS: No Contrast Test: CT ABD & PELVIS: No Contrast REASON FOR EXAMINATION: Renal colic; ; CLINICAL HISTORY: Abdominal pain.; TECHNIQUE: Multiple axial, sagittal and coronal CT images were obtained through the abdomen and pelvi; s without administration of oral or IV contrast material.; COMMENTS:; Comparison is made to the prior exam performed on 01/03/2014.; The liver is of uniform attenuation without mass or defect. There is no intra or extrahepatic biliary; ductal dilatation. The spleen is normal. The gallbladder is surgically absent. The pancreas is of no; rmal contour and attenuation characteristics. There is no evidence of adrenal mass.; 2 obstructing stones in the distal aspect of the left ureter with the largest measuring 4.5 mm. Mild; left hydroureteronephrosis.; There is no evidence for appendicitis. There is no bowel wall thickening. No evidence for small or la; rge bowel obstruction. There is no evidence of abdominal ascites or lymphadenopathy.; There is no evidence of intrinsic or extrinsic bladder mass. There is no pelvic ascites or lymphadeno; raymundo. Thickened bladder.; Images of the lung bases show no evidence of pleural or parenchymal mass. There are no pleural effusi; ons.; The bony structures are free of lytic or blastic lesions. Multilevel degenerative changes are seen in; volving the thoracolumbar spine.; Scattered calcifications are seen involving the aorta and major branches compatible with atherosclero; sis.; IMPRESSION:; 2 obstructing stones in the distal left ureter.; Mild left hydroureteronephrosis.; Surgically absent gallbladder.; Left nephrolithiasis.; Moderate large bowel fecal stasis.; Thank you for your kind referral of this patient.; ; Outcome: 09:32 Discharge ordered by Provider. ar2 09:46 Discharge Assessment: Patient awake, alert and oriented x 3. No cognitive and/or ttb functional deficits noted. Patient verbalized understanding of disposition instructions. Patient awake and alert. patient administered narcotics - yes. Pt provided with safe discharge. The following High Risk Discharge criteria are identified: None. Discharged to home ambulatory. Condition: good Condition: stable Condition: improved. Discharge instructions given to patient, Instructed on discharge instructions, follow up and referral plans. medication usage, no driving heavy equipment, diet, no drinking with medication, Demonstrated understanding of instructions, medications, no d/d with narcs, increase fluid intake, strain urine. Pt was receptive of discharge instructions/ teaching. Prescriptions given X 4, Work note provided to patient. CT Study completed. Property :Personal belongings accompany Pt. 09:49 Patient left the ED. ttb Signatures: Dispatcher [facility] EDIvette Engle RN RN Lexa Zuluaga RN RN cz Murphy, Jane, MARKETING SECRETARY MARKETING SECRETARY jam1 Eric Oconnor, Reg Reg lg Stanton Condon, Reg Reg kf3 Nish Campuzano, PA-Graciela PA-C ar2 Nova Mcgregor,RAMA RN Paulette Vo RN RN ttb Beck, Gabriela gjb Redder, Kathie klr Chart Complete MTDD
--- NOTE | 2016-07-23 11:29 | EDDOCDS ---
Physician Documentation [facility] Name: Perla Pantoja Age: 35 yrs Sex: Female : 1980 Arrival Date: 07/21/2016 Time: 06:34 Bed I5 / M5 Private MD: Disposition: 07/21/16 09:32 Discharged to Home/Self Care. Impression: Hydronephrosis with renal and ureteral calculous obstruction - 2 left distal ureteral stones, largest 4.5 mm. - Condition is Stable. - Discharge Instructions: Kidney Stones. - Prescriptions for Ibuprofen 800 mg Oral Tablet - take 1 tablet by ORAL route every 8 hours As needed take with food; 30 tablet. Percocet 5- 325 mg Oral Tablet - take 1 tablet by ORAL route every 6 hours As needed MDD: 4 tabs; 20 tablet. Flomax 0.4 mg Oral Capsule, Sust. Release 24 hr - take 1 capsule by ORAL route once daily 1/2 hour following the same meal each day; 30 capsule. ZOFRAN ODT 4 mg - dissolve 1 tablet by ORAL route 4 times per day As needed do not chew, do not swallow whole; 10 tablet. - Medication Reconciliation, Local Pharmacy Hours, Work Release Form - 1 day form. - Follow up: Chelsie Scales MD; When: Call to arrange an appointment; Reason: Recheck today's complaints. Follow up: Emergency Department; When: As needed; Reason: Worsening of conditions. - Problem is new. - Symptoms have improved. Historical: - Allergies: No known drug Allergies; - Home Meds: 1. none - PMHx: Kidney stones; - PSHx: ; Cholecystectomy; gall bladder stent; - Social history: Smoking status: Patient states was never smoker of tobacco. No barriers to communication noted, The patient speaks fluent Moldovan, Speaks appropriately for age. - Family history: Not pertinent. - : The pt / caregiver states he / she is not on anticoagulants. Home medication list is obtained from the patient. 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 FORGE OPERATOR: 07/21 06:43 LMP 07/16/2016 cz Vital Signs: 06:43 BP 133 / 72; Pulse 70; Resp 19; Temp 97.9; Pulse Ox 100% on R/A; Weight 108.86 kg / 240 cz lbs; Height 5 ft. 5 in. (165.10 cm); 08:13 BP 144 / 88; Pulse 66; Resp 20; Temp 98.0; Pulse Ox 99% ; Pain 6/10; jam1 09:24 BP 156 / 79; Pulse 65; Resp 18; Temp 97.0; Pulse Ox 99% ; Pain 4/10; jam1 06:43 Body Mass Index 39.94 (108.86 kg, 165.10 cm) cz MDM: 07:05 UCG by Nursing ordered. ar2 07:06 UA Ordered. EDMS 07:06 Urine Culture Ordered. EDMS 07:14 IV Saline Lock ordered. ar2 07:14 ketorolac 30 mg IVP once ordered. ar2 07:14 NS 0.9% 1000 ml IV at bolus once ordered. ar2 07:14 Ondansetron 4 mg IVP once ordered. ar2 07:15 CBC with Diff Ordered. EDMS 07:15 MED Profile Ordered. EDMS 07:15 CT ABD & PELVIS: No Contrast Ordered. EDMS 07:56 Financial registration complete. lg 08:07 CBC with Diff Reviewed. ar2 08:07 MED Profile Reviewed. ar2 08:07 UA Reviewed. ar2 08:17 LIPASE Ordered. EDMS 08:17 LIVER PROFILE Ordered. EDMS 08:38 MED Profile Reviewed. ar2 08:38 LIVER PROFILE Reviewed. ar2 08:38 LIPASE Reviewed. ar2 08:45 morphine 4 mg IVP once ordered. ar2 09:01 [facility] Payment Agreement was scanned into [employer] and attached to record. lg 09:31 Dispense Urine Strainer ordered. ar2 09:34 CT ABD & PELVIS: No Contrast Reviewed. ar2 17:19 Radiology Report was scanned into [employer] and attached to record. kf3 20:45 T-Sheet-- Draft Copy was scanned into [employer] and attached to record. klr 07/23 07:29 Urine Culture Reviewed. sd1 Point of Care Testing: Urine : 07/21 07:19 hCG Reading: Negative; jam1 Ranges: Administered Medications: 07:42 Drug: ketorolac 30 mg [ketorolac 30 mg/mL (1 mL) injection solution (1 mL)] Route: IVP; dls Site: left antecubital; 09:49 Follow up: Response: No Adverse Reaction; Pain is decreased ttb 07:42 Drug: NS 0.9% 1000 ml [sodium chloride 0.9 % intravenous solution] Route: IV; Rate: dls bolus; Site: left antecubital; 09:49 Follow up: IV Status: Completed infusion; IV Intake: 1000ml ttb 07:42 Drug: Ondansetron 4 mg Route: IVP; Site: left antecubital; dls 09:49 Follow up: Response: Nausea is resolved; No Adverse Reaction ttb 08:52 Drug: morphine 4 mg [morphine 4 mg/mL intravenous cartridge (1 mL)] Route: IVP; Site: dls left antecubital; 09:48 Follow up: Response: Confirmed pt not driving.; No Adverse Reaction; Pain is decreased ttb Signatures: Dispatcher [employer] EDMS Queta Moore MD MD sd1 Lexa Wang RN RN cz Eric Oconnor, Reg Reg lg Stanton Condon, Reg Reg kf3 Nish Campuzano, PASarah PASarah ar2 Nova Mcgregor RN RN pml Conner, Teresa, RN RN ttb Redder, Kathie klr Scott, Debra RN dls The chart was reviewed and I authenticate all verbal orders and agree with the evaluation and treatment provided.Corrections: (The following items were deleted from the chart) 08:17 08:14 LIVER PROFILE+LAB ordered. EDMS EDMS 08:17 08:14 LIPASE+LAB ordered. EDMS EDMS Attachments: 09:01 [facility] Payment Agreement lg 20:45 T-Sheet-- Draft Copy klr MTDD
--- NOTE | 2016-07-23 11:29 | EDDOCDS ---
Physician Documentation [facility] Name: Perla Pantoja Age: 35 yrs Sex: Female : 1980 Arrival Date: 07/21/2016 Time: 06:34 Bed I5 / M5 Private MD: Disposition: 07/21/16 09:32 Discharged to Home/Self Care. Impression: Hydronephrosis with renal and ureteral calculous obstruction - 2 left distal ureteral stones, largest 4.5 mm. - Condition is Stable. - Discharge Instructions: Kidney Stones. - Prescriptions for Ibuprofen 800 mg Oral Tablet - take 1 tablet by ORAL route every 8 hours As needed take with food; 30 tablet. Percocet 5- 325 mg Oral Tablet - take 1 tablet by ORAL route every 6 hours As needed MDD: 4 tabs; 20 tablet. Flomax 0.4 mg Oral Capsule, Sust. Release 24 hr - take 1 capsule by ORAL route once daily 1/2 hour following the same meal each day; 30 capsule. ZOFRAN ODT 4 mg - dissolve 1 tablet by ORAL route 4 times per day As needed do not chew, do not swallow whole; 10 tablet. - Medication Reconciliation, Local Pharmacy Hours, Work Release Form - 1 day form. - Follow up: Chelsie Scales MD; When: Call to arrange an appointment; Reason: Recheck today's complaints. Follow up: Emergency Department; When: As needed; Reason: Worsening of conditions. - Problem is new. - Symptoms have improved. Historical: - Allergies: No known drug Allergies; - Home Meds: 1. none - PMHx: Kidney stones; - PSHx: ; Cholecystectomy; gall bladder stent; - Social history: Smoking status: Patient states was never smoker of tobacco. No barriers to communication noted, The patient speaks fluent [place] Islander, Speaks appropriately for age. - Family history: Not pertinent. - : The pt / caregiver states he / she is not on anticoagulants. Home medication list is obtained from the patient. 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 5 in. (165.10 cm); 08:13 BP 144 / 88; Pulse 66; Resp 20; Temp 98.0; Pulse Ox 99% ; Pain 6/10; jam1 09:24 BP 156 / 79; Pulse 65; Resp 18; Temp 97.0; Pulse Ox 99% ; Pain 4/10; jam1 06:43 Body Mass Index 39.94 (108.86 kg, 165.10 cm) cz MDM: 07:05 UCG by Nursing ordered. ar2 07:06 UA Ordered. EDMS 07:06 Urine Culture Ordered. EDMS 07:14 IV Saline Lock ordered. ar2 07:14 ketorolac 30 mg IVP once ordered. ar2 07:14 NS 0.9% 1000 ml IV at bolus once ordered. ar2 07:14 Ondansetron 4 mg IVP once ordered. ar2 07:15 CBC with Diff Ordered. EDMS 07:15 MED Profile Ordered. EDMS 07:15 CT ABD & PELVIS: No Contrast Ordered. EDMS 07:56 Financial registration complete. lg 08:07 CBC with Diff Reviewed. ar2 08:07 MED Profile Reviewed. ar2 08:07 UA Reviewed. ar2 08:17 LIPASE Ordered. EDMS 08:17 LIVER PROFILE Ordered. EDMS 08:38 MED Profile Reviewed. ar2 08:38 LIVER PROFILE Reviewed. ar2 08:38 LIPASE Reviewed. ar2 08:45 morphine 4 mg IVP once ordered. ar2 09:01 [facility] Payment Agreement was scanned into [employer] and attached to record. lg 09:31 Dispense Urine Strainer ordered. ar2 09:34 CT ABD & PELVIS: No Contrast Reviewed. ar2 17:19 Radiology Report was scanned into [employer] and attached to record. kf3 20:45 T-Sheet-- Draft Copy was scanned into [employer] and attached to record. klr 07/23 07:29 Urine Culture Reviewed. sd1 Point of Care Testing: Urine : 07/21 07:19 hCG Reading: Negative; jam1 Ranges: Administered Medications: 07:42 Drug: ketorolac 30 mg [ketorolac 30 mg/mL (1 mL) injection solution (1 mL)] Route: IVP; dls Site: left antecubital; 09:49 Follow up: Response: No Adverse Reaction; Pain is decreased ttb 07:42 Drug: NS 0.9% 1000 ml [sodium chloride 0.9 % intravenous solution] Route: IV; Rate: dls bolus; Site: left antecubital; 09:49 Follow up: IV Status: Completed infusion; IV Intake: 1000ml ttb 07:42 Drug: Ondansetron 4 mg Route: IVP; Site: left antecubital; dls 09:49 Follow up: Response: Nausea is resolved; No Adverse Reaction ttb 08:52 Drug: morphine 4 mg [morphine 4 mg/mL intravenous cartridge (1 mL)] Route: IVP; Site: dls left antecubital; 09:48 Follow up: Response: Confirmed pt not driving.; No Adverse Reaction; Pain is decreased ttb Signatures: Dispatcher [employer] EDMS Queta Moore MD MD sd1 Lexa Wang RN RN cz Eric Oconnor, Reg Reg lg Stanton Condon, Reg Reg kf3 Nish Campuzano, PASarah PASarah ar2 Nova Mcgregor RN RN pml Conner, Teresa, RN RN ttb Redder, Kathie klr Scott, Debra RN dls The chart was reviewed and I authenticate all verbal orders and agree with the evaluation and treatment provided.Corrections: (The following items were deleted from the chart) 08:17 08:14 LIVER PROFILE+LAB ordered. EDMS EDMS 08:17 08:14 LIPASE+LAB ordered. EDMS EDMS Attachments: 09:01 [facility] Payment Agreement lg 20:45 T-Sheet-- Draft Copy klr MTDD
--- NOTE | 2016-07-23 11:29 | EDDOCDS ---
Nurse's Notes [facility] Name: Perla Pantoja Age: 35 yrs Sex: Female : 1980 Arrival Date: 07/21/2016 Time: 06:34 Bed I5 / M5 Private MD: Diagnosis: Hydronephrosis with renal and ureteral calculous obstruction-2 left distal ureteral stones, largest 4.5 mm Presentation: 07/21 06:38 Presenting complaint: Patient states: she started with urethral area pain this morning cz pain began last night around 2300. pt states history of kidney stones last one around 7 months ago. Acute neurological deficits are not present. Mechanism of Injury: No Mechanism of Injury. Adult Sepsis Screening: The patient does not have new or worsening altered mentation. Patient's respiratory rate is less than 22. Systolic blood pressure is greater than 100. Patient has a qSOFA score of 0- Negative Sepsis Screen. Suicide/Homicide risk assessment- the patient denies having any suicidal and/or homicidal ideations and does not present with any other emotional, behavioral or mental health complaints. Status: Patient is not a funeral service licensee or dependent. Transition of care: patient was not received from another setting of care. 06:38 Acuity: LIZETH Level 3 cz 06:38 Method Of Arrival: Walkin/Carried/Asstd cz Triage Assessment: 06:43 General: Appears distressed, uncomfortable. Pain: Location: pelvis Pain currently is 8 cz out of 10 on a pain scale. At worst was 9 out of 10 on a pain scale. HIV screening NA for this visit Offered previously. 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 none - PMHx: Kidney stones; - PSHx: ; Cholecystectomy; gall bladder stent; - Social history: Smoking status: Patient states was never smoker of tobacco. No barriers to communication noted, The patient speaks fluent Dutch, Speaks appropriately for age. - Family history: Not pertinent. - : The pt / caregiver states he / she is not on anticoagulants. Home medication list is obtained from the patient. 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 Screenin:19 Screening information is obtained from the patient. Primary language is Dutch. Fall jam1 risk: No risks identified. Assistance ADL's: requires no assistance with activities of daily living. Abuse/DV Screen: The patient / caregiver reports he/she is: not in a situation that causes fear, pain or injury. Nutritional screening: No deficits noted. Exposure Risk Screening: None identified. Advance Directives: Currently, there is no health care proxy. There is no active DNR order. There is no living will. There is no Power of Ct Scan Special Procedures Technologist. Advance directive information has not previously been placed in an [facility] medical record. Further advance directive information is declined. home support is adequate. Assessment: 07:39 General: Appears in no apparent distress, comfortable, Behavior is appropriate for age, pml cooperative. Pain: Location: pelvis Pain currently is 9 out of 10 on a pain scale. Neurological: Level of Consciousness is awake, alert, Oriented to person, place, time. Cardiovascular: Capillary refill < 3 seconds. Respiratory: Airway is patent Respiratory effort is even, unlabored. GI: Abdomen is non- distended obese. GI: Reports nausea. : Reports pain when bladder is full - states "I can't hold onto any fluids". Derm: Skin is pink, warm & dry. Musculoskeletal: Circulation, motion, and sensation intact Capillary refill < 3 seconds. 08:53 General: Pts pain is 7/10 IV infusing well site clear re-medicated pt per order.. dls 09:46 Reassessment: Patient appears in no apparent distress at this time. Patient states ttb feeling better. Patient states symptoms have improved. pt given urine strainer. States she would prefer to pass on her own as she has done before. Comfortable going home. . General: Appears in no apparent distress. Neurological: Level of Consciousness is awake, alert. Respiratory: Airway is patent Respiratory effort is even, unlabored. GI: Denies nausea, vomiting. Vital Signs: 06:43 BP 133 / 72; Pulse 70; Resp 19; Temp 97.9; Pulse Ox 100% on R/A; Weight 108.86 kg; cz Height 5 ft. 5 in. (165.10 cm); 08:13 BP 144 / 88; Pulse 66; Resp 20; Temp 98.0; Pulse Ox 99% ; Pain 6/10; jam1 09:24 BP 156 / 79; Pulse 65; Resp 18; Temp 97.0; Pulse Ox 99% ; Pain 4/10; jam1 06:43 Body Mass Index 39.94 (108.86 kg, 165.10 cm) cz Vitals: 06:43 Log In Time: July 21, 2016 at 06:34. cz ED Course: 06:35 Patient visited by Suzanne Louis. gjb 06:35 Patient moved to Waiting gjb 06:38 Patient moved to Triage 1 cz 06:43 Triage Initiated cz 06:45 Patient moved to Pre RCE cz 06:58 Patient moved to I5 / M5 jam1 07:05 Pt greeted and oriented to ED. Patient advised of names of staff involved in care, jam1 location of call albert, wait times and NPO status. Patient has correct armband on for positive identification. Placed in gown. Bed in low position. Call light in reach. Side rails up X 1. Door closed. 07:10 Nish Campuzano PA-C is PHCP. ar2 07:10 Stephen Bales DO is Attending Physician. ar2 07:11 Attending Physician role handed off by Stephen Bales DO ar2 07:11 Sukh Wood MD is Attending Physician. ar2 07:11 Patient visited by Nish Campuzano PA-C. ar2 07:12 Urine Culture Sent. jam1 07:12 UA Sent. jam1 07:39 The patient / caregiver is instructed regarding the plan of care and ED course. pml 07:39 Inserted peripheral IV: 20gauge IV in left antecubital area and blood collected. pml Patient tolerated the procedure well. 07:40 Patient visited by Nova Mcgregor RN. pml 08:41 CT ABD & PELVIS: No Contrast Returned. EDMS 08:45 Patient visited by Ivette Boone RN. dls 09:00 Patient name changed from Perla\\S\\Lita\\S\\Pietramala\\S\\ to Perla\\S\\L\\S\\Pietramala. EDMS 09:01 [facility] [place] Agreement was scanned into [employer] and attached to record. lg 09:31 Chelsie Scales MD is Referral Physician. ar2 09:46 Discontinued IV lock intact, bleeding controlled, pressure dressing applied, No ttb redness/swelling at site. No procedures done that require assistance. Labs drawn. (by ED staff). Urine collected. Clean catch specimen. 17:19 Radiology Report was scanned into [employer] and attached to record. kf3 20:45 T-Sheet-- Draft Copy was scanned into [employer] and attached to record. klr Administered Medications: 07:42 Drug: ketorolac 30 mg [ketorolac 30 mg/mL (1 mL) injection solution (1 mL)] Route: IVP; dls Site: left antecubital; 09:49 Follow up: Response: No Adverse Reaction; Pain is decreased ttb 07:42 Drug: NS 0.9% 1000 ml [sodium chloride 0.9 % intravenous solution] Route: IV; Rate: dls bolus; Site: left antecubital; 09:49 Follow up: IV Status: Completed infusion; IV Intake: 1000ml ttb 07:42 Drug: Ondansetron 4 mg Route: IVP; Site: left antecubital; dls 09:49 Follow up: Response: Nausea is resolved; No Adverse Reaction ttb 08:52 Drug: morphine 4 mg [morphine 4 mg/mL intravenous cartridge (1 mL)] Route: IVP; Site: dls left antecubital; 09:48 Follow up: Response: Confirmed pt not driving.; No Adverse Reaction; Pain is decreased ttb Point of Care Testing: Urine : 07:19 hCG Reading: Negative; jam1 Ranges: Intake: 09:49 IV: 1000.00ml; Total: 1000.00ml. ttb Order Results: Lab Order: UA; SPEC'M 07/21/16 07:09 Test: APPEARANCE, URINE; Value: CLEAR; Range: CLEAR; Status: F Test: COLOR, URINE; Value: YELLOW; Range: YELLOW; Status: F Test: PH,URINE; Value: 6.0; Range: 5.0-9.0; Units: UNITS; Status: F Test: SPECIFIC GRAVITY URINE AUTO; Value: 1.018; Range: 1.002-1.035; Status: F Test: PROTEIN, URINE AUTO; Value: NEGATIVE; Range: NEGATIVE; Units: mg/dL; Status: F Test: GLUCOSE, URINE (UA) AUTO; Value: NEGATIVE; Range: NEGATIVE; Units: mg/dL; Status: F Test: KETONE, URINE AUTO; Value: NEGATIVE; Range: NEGATIVE; Units: mg/dL; Status: F Test: UROBILINOGEN, URINE AUTO; Value: 0.2; Range: 0.0-2.0; Units: mg/dL; Status: F Test: BILIRUBIN, URINE AUTO; Value: NEGATIVE; Range: NEGATIVE; Status: F Test: NITRITE, URINE AUTO; Value: NEGATIVE; Range: NEGATIVE; Status: F Test: LEUKOCYTE ESTERASE, URINE AUTO; Value: NEGATIVE; Range: NEGATIVE; Status: F Test: BLOOD, URINE BLOOD; Value: NEGATIVE; Range: NEGATIVE; Status: F Test: WBC, URINE AUTO; Value: 1; Range: 0-3; Units: /HPF; Status: F Test: RBC, URINE AUTO; Value: 3; Range: 0-3; Units: /HPF; Status: F Test: BACTERIA, URINE AUTO; Value: NEGATIVE; Range: NEGATIVE; Status: F Test: SQUAMOUS EPITHELIAL CELL UR AU; Value: 0; Range: 0-6; Units: /HPF; Status: F Test: MUCUS, URINE; Value: SMALL; Range: NEGATIVE; Status: F Test: HYALINE CAST, URINE AUTO; Value: 0; Range: 0-1; Units: /LPF; Status: F Lab Order: Urine Culture; SPEC'M 07/21/16 07:09 Test: URINE CULTURE; Value: <EXTERNAL COMMENT eCWMed> FULL REPORT IN LAB NOTES (eCW and Medent).; Status: F Test: URINE CULTURE; Value: ORGANISM 1: STREP AGALACTIAE GROUP B; Status: F Test: URINE CULTURE; Value: STREP AGALACTIAE GROUP B; Status: F Test: URINE CULTURE; Value: COLONY COUNT CFU/ml 40,000; Status: F Test: URINE CULTURE; Value: GRAM POS SENSI - ST02; Status: F Test: URINE CULTURE; Value: Method: VIT2; Status: F Test: URINE CULTURE; Value: ICR (INDUCIBLE CC RESISTANCE) -; Status: F Test: URINE CULTURE; Value: TETRACYCLINE >=16 R; Status: F Test: URINE CULTURE; Value: PENICILLIN G <=0.06 S; Status: F Test: URINE CULTURE; Value: TRIMETHOPRIM/SULFAMETHOXAZOLE <=10 S; Status: F Test: URINE CULTURE; Value: AMPICILLIN <=0.25 S; Status: F Test: URINE CULTURE; Value: ERYTHROMYCIN >=8 R; Status: F Test: URINE CULTURE; Value: LEVOFLOXACIN 1 S; Status: F Test: URINE CULTURE; Value: VANCOMYCIN 0.5 S; Status: F Test: URINE CULTURE; Value: MOXIFLOXACIN (AVELOX) 0.12 S; Status: F Test: URINE CULTURE; Value: CEFTRIAXONE <=0.12 S; Status: F Test: URINE CULTURE; Value: CEFOTAXIME <=0.12 S; Status: F Lab Order: CBC with Diff; SPEC'M 07/21/16 07:38 Test: WHITE BLOOD COUNT; Value: 5.6; Range: 4.0-10.0; Units: K/mm3; Status: F Test: RED BLOOD COUNT; Value: 3.86; Range: 4.00-5.40; Abnormal: Below low normal; Units: M/mm3; Status: F Test: HEMOGLOBIN; Value: 10.3; Range: 12.0-16.0; Abnormal: Below low normal; Units: g/dl; Status: F Test: HEMATOCRIT; Value: 32.4; Range: 36.0-47.0; Abnormal: Below low normal; Units: %; Status: F Test: MEAN CORPUSCULAR VOLUME; Value: 83.8; Range: 80.0-96.0; Units: fl; Status: F Test: MEAN CORPUSCULAR HEMOGLOBIN; Value: 26.5; Range: 27.0-33.0; Abnormal: Below low normal; Units: pg; Status: F Test: MEAN CORPUSCULAR HGB CONC; Value: 31.6; Range: 32.0-36.5; Abnormal: Below low normal; Units: g/dl; Status: F Test: RED CELL DISTRIBUTION WIDTH; Value: 14.5; Range: 11.5-14.5; Units: %; Status: F Test: PLATELET COUNT, AUTOMATED; Value: 211; Range: 150-450; Units: k/mm3; Status: F Test: NEUTROPHILS %; Value: 55.2; Range: 36.0-66.0; Units: %; Status: F Test: LYMPH %; Value: 30.9; Range: 24.0-44.0; Units: %; Status: F Test: MONO %; Value: 6.0; Range: 0.0-5.0; Abnormal: Above high normal; Units: %; Status: F Test: EOS %; Value: 4.4; Range: 0.0-3.0; Abnormal: Above high normal; Units: %; Status: F Test: BASO %; Value: 0.8; Range: 0.0-1.0; Units: %; Status: F Test: LARGE UNSTAINED CELL %; Value: 2.8; Range: 0.0-4.0; Units: %; Status: F Test: NEUTROPHILS #; Value: 3.1; Range: 1.8-7.7; Units: K/mm3; Status: F Test: LYMPH #; Value: 1.7; Range: 1.5-4.5; Units: K/mm3; Status: F Test: MONO #; Value: 0.3; Range: 0.0-0.8; Units: K/mm3; Status: F Test: EOS #; Value: 0.2; Range: 0.0-0.50; Units: K/mm3; Status: F Test: BASO #; Value: 0.0; Range: 0.0-0.2; Units: K/mm3; Status: F Test: LARGE UNSTAINED CELL #; Value: 0.2; Range: 0.0-0.4; Units: K/mm3; Status: F Lab Order: MED Profile; SPEC'M 07/21/16 07:38 Test: GLUCOSE, FASTING; Value: 91; Range: 70-105; Units: MG/DL; Status: F Test: BLOOD UREA NITROGEN; Value: 12; Range: 7-18; Units: MG/DL; Status: F Test: CREATININE FOR GFR; Value: 0.64; Range: 0.55-1.02; Units: MG/DL; Status: F Test: GLOMERULAR FILTRATION RATE; Value: > 60.0; Range: >60; Status: F Test: SODIUM LEVEL; Value: 143; Range: 136-145; Units: MEQ/L; Status: F Test: POTASSIUM SERUM; Value: 3.7; Range: 3.5-5.1; Units: MEQ/L; Status: F Test: CHLORIDE LEVEL; Value: 109; Range: 98-107; Abnormal: Above high normal; Units: MEQ/L; Status: F Test: CARBON DIOXIDE LEVEL; Value: 29; Range: 21-32; Units: MEQ/L; Status: F Test: ANION GAP; Value: 5; Range: 8-16; Abnormal: Below low normal; Units: MEQ/L; Status: F Test: CALCIUM LEVEL; Value: 8.2; Range: 8.5-10.1; Abnormal: Below low normal; Units: MG/DL; Status: F Test Note: ; Units are mL/min/1.73 m2 Chronic Kidney Disease Staging per NKF: Stage I & II GFR >=60 Normal to Mildly Decreased Stage III GFR 30-59 Moderately Decreased Stage IV GFR 15-29 Severely Decreased Stage V GFR <15 Very Little GFR Left ESRD GFR <15 on PROCESSING ANALYST Lab Order: LIPASE; SPEC'M 07/21/16 07:38 Test: LIPASE; Value: 193; Range: 73-393; Units: U/L; Status: F Lab Order: LIVER PROFILE; SPEC'M 07/21/16 07:38 Test: AST/SGOT; Value: 6; Range: 15-37; Abnormal: Below low normal; Units: U/L; Status: F Test: ALT/SGPT; Value: 14; Range: 12-78; Units: U/L; Status: F Test: ALKALINE PHOSPHATASE; Value: 50; Range: 45-117; Units: U/L; Status: F Test: BILIRUBIN,TOTAL; Value: 0.4; Range: 0.2-1.0; Units: MG/DL; Status: F Test: BILIRUBIN,DIRECT; Value: < 0.1; Range: 0.0-0.2; Units: MG/DL; Status: F Test: TOTAL PROTEIN; Value: 6.6; Range: 6.4-8.2; Units: GM/DL; Status: F Test: ALBUMIN; Value: 3.2; Range: 3.2-5.2; Units: GM/DL; Status: F Test: ALBUMIN/GLOBULIN RATIO; Value: 0.94; Range: 1.00-1.93; Abnormal: Below low normal; Status: F Radiology Order: CT ABD & PELVIS: No Contrast Test: CT ABD & PELVIS: No Contrast REASON FOR EXAMINATION: Renal colic; ; CLINICAL HISTORY: Abdominal pain.; TECHNIQUE: Multiple axial, sagittal and coronal CT images were obtained through the abdomen and pelvi; s without administration of oral or IV contrast material.; COMMENTS:; Comparison is made to the prior exam performed on 01/03/2014.; The liver is of uniform attenuation without mass or defect. There is no intra or extrahepatic biliary; ductal dilatation. The spleen is normal. The gallbladder is surgically absent. The pancreas is of no; rmal contour and attenuation characteristics. There is no evidence of adrenal mass.; 2 obstructing stones in the distal aspect of the left ureter with the largest measuring 4.5 mm. Mild; left hydroureteronephrosis.; There is no evidence for appendicitis. There is no bowel wall thickening. No evidence for small or la; rge bowel obstruction. There is no evidence of abdominal ascites or lymphadenopathy.; There is no evidence of intrinsic or extrinsic bladder mass. There is no pelvic ascites or lymphadeno; raymundo. Thickened bladder.; Images of the lung bases show no evidence of pleural or parenchymal mass. There are no pleural effusi; ons.; The bony structures are free of lytic or blastic lesions. Multilevel degenerative changes are seen in; volving the thoracolumbar spine.; Scattered calcifications are seen involving the aorta and major branches compatible with atherosclero; sis.; IMPRESSION:; 2 obstructing stones in the distal left ureter.; Mild left hydroureteronephrosis.; Surgically absent gallbladder.; Left nephrolithiasis.; Moderate large bowel fecal stasis.; Thank you for your kind referral of this patient.; ; Outcome: 09:32 Discharge ordered by Provider. ar2 09:46 Discharge Assessment: Patient awake, alert and oriented x 3. No cognitive and/or ttb functional deficits noted. Patient verbalized understanding of disposition instructions. Patient awake and alert. patient administered narcotics - yes. Pt provided with safe discharge. The following High Risk Discharge criteria are identified: None. Discharged to home ambulatory. Condition: good Condition: stable Condition: improved. Discharge instructions given to patient, Instructed on discharge instructions, follow up and referral plans. medication usage, no driving heavy equipment, diet, no drinking with medication, Demonstrated understanding of instructions, medications, no d/d with narcs, increase fluid intake, strain urine. Pt was receptive of discharge instructions/ teaching. Prescriptions given X 4, Work note provided to patient. CT Study completed. Property :Personal belongings accompany Pt. 09:49 Patient left the ED. ttb Addendum: 07/23/2016 11:27 Narrative: Urine culture results reviewed with Dr. Squires and report to be faxed to [facility] ([place]). Signatures: Dispatcher [employer] Kalina Urbina RN RN kcs Scott, Debra, RN RN dls Zecher, Calvin, RN RN cz Murphy, Jane, RN FORENSIC RN FORENSIC jam1 Eric Oconnor, Reg Reg lg FidStanton sorenson, Reg Reg kf3 Nish Campuzano, PA-C PA-C ar2 Nova Mcgregor RN RN pml Conner, Teresa, RN RN ttb Beck, Gabriela gjb Redder, Kathie klr MTDD
--- NOTE | 2016-07-23 12:19 | EDDOCDS ---
Physician Documentation [facility] Name: Perla Pantoja Age: 35 yrs Sex: Female : 1980 Arrival Date: 07/21/2016 Time: 06:34 Bed I5 / M5 Private MD: Disposition: 07/21/16 09:32 Discharged to Home/Self Care. Impression: Hydronephrosis with renal and ureteral calculous obstruction - 2 left distal ureteral stones, largest 4.5 mm. - Condition is Stable. - Discharge Instructions: Kidney Stones. - Prescriptions for Ibuprofen 800 mg Oral Tablet - take 1 tablet by ORAL route every 8 hours As needed take with food; 30 tablet. Percocet 5- 325 mg Oral Tablet - take 1 tablet by ORAL route every 6 hours As needed MDD: 4 tabs; 20 tablet. Flomax 0.4 mg Oral Capsule, Sust. Release 24 hr - take 1 capsule by ORAL route once daily 1/2 hour following the same meal each day; 30 capsule. ZOFRAN ODT 4 mg - dissolve 1 tablet by ORAL route 4 times per day As needed do not chew, do not swallow whole; 10 tablet. - Medication Reconciliation, Local Pharmacy Hours, Work Release Form - 1 day form. - Follow up: Chelsie Scales MD; When: Call to arrange an appointment; Reason: Recheck today's complaints. Follow up: Emergency Department; When: As needed; Reason: Worsening of conditions. - Problem is new. - Symptoms have improved. Historical: - Allergies: No known drug Allergies; - Home Meds: 1. none - PMHx: Kidney stones; - PSHx: ; Cholecystectomy; gall bladder stent; - Social history: Smoking status: Patient states was never smoker of tobacco. No barriers to communication noted, The patient speaks fluent [place], Speaks appropriately for age. - Family history: Not pertinent. - : The pt / caregiver states he / she is not on anticoagulants. Home medication list is obtained from the patient. 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 5 in. (165.10 cm); 08:13 BP 144 / 88; Pulse 66; Resp 20; Temp 98.0; Pulse Ox 99% ; Pain 6/10; jam1 09:24 BP 156 / 79; Pulse 65; Resp 18; Temp 97.0; Pulse Ox 99% ; Pain 4/10; jam1 06:43 Body Mass Index 39.94 (108.86 kg, 165.10 cm) cz MDM: 07:05 UCG by Nursing ordered. ar2 07:06 UA Ordered. EDMS 07:06 Urine Culture Ordered. EDMS 07:14 IV Saline Lock ordered. ar2 07:14 ketorolac 30 mg IVP once ordered. ar2 07:14 NS 0.9% 1000 ml IV at bolus once ordered. ar2 07:14 Ondansetron 4 mg IVP once ordered. ar2 07:15 CBC with Diff Ordered. EDMS 07:15 MED Profile Ordered. EDMS 07:15 CT ABD & PELVIS: No Contrast Ordered. EDMS 07:56 Financial registration complete. lg 08:07 CBC with Diff Reviewed. ar2 08:07 MED Profile Reviewed. ar2 08:07 UA Reviewed. ar2 08:17 LIPASE Ordered. EDMS 08:17 LIVER PROFILE Ordered. EDMS 08:38 MED Profile Reviewed. ar2 08:38 LIVER PROFILE Reviewed. ar2 08:38 LIPASE Reviewed. ar2 08:45 morphine 4 mg IVP once ordered. ar2 09:01 [facility] Payment Agreement was scanned into [employer] and attached to record. lg 09:31 Dispense Urine Strainer ordered. ar2 09:34 CT ABD & PELVIS: No Contrast Reviewed. ar2 17:19 Radiology Report was scanned into [employer] and attached to record. kf3 20:45 T-Sheet-- Draft Copy was scanned into [employer] and attached to record. klr 07/23 07:29 Urine Culture Reviewed. sd1 Point of Care Testing: Urine : 07/21 07:19 hCG Reading: Negative; jam1 Ranges: Administered Medications: 07:42 Drug: ketorolac 30 mg [ketorolac 30 mg/mL (1 mL) injection solution (1 mL)] Route: IVP; dls Site: left antecubital; 09:49 Follow up: Response: No Adverse Reaction; Pain is decreased ttb 07:42 Drug: NS 0.9% 1000 ml [sodium chloride 0.9 % intravenous solution] Route: IV; Rate: dls bolus; Site: left antecubital; 09:49 Follow up: IV Status: Completed infusion; IV Intake: 1000ml ttb 07:42 Drug: Ondansetron 4 mg Route: IVP; Site: left antecubital; dls 09:49 Follow up: Response: Nausea is resolved; No Adverse Reaction ttb 08:52 Drug: morphine 4 mg [morphine 4 mg/mL intravenous cartridge (1 mL)] Route: IVP; Site: dls left antecubital; 09:48 Follow up: Response: Confirmed pt not driving.; No Adverse Reaction; Pain is decreased ttb Signatures: Dispatcher [employer] EDMS Queta Moore MD MD sd1 Lexa Wang RN RN cz Eric Oconnor, Reg Reg lg Stanton Condon, Reg Reg kf3 Nish Campuzano PASarah PASarah ar2 Nova Mcgregor RN RN pml Conner, Teresa, RN RN ttb Redder, Kathie klr Scott, Debra RN dls The chart was reviewed and I authenticate all verbal orders and agree with the evaluation and treatment provided.Corrections: (The following items were deleted from the chart) 08:17 08:14 LIVER PROFILE+LAB ordered. EDMS EDMS 08:17 08:14 LIPASE+LAB ordered. EDMS EDMS Attachments: 09:01 [facility] Payment Agreement lg 20:45 T-Sheet-- Draft Copy klr Chart Complete MTDD
--- NOTE | 2016-07-23 12:19 | EDDOCDS ---
Physician Documentation [facility] Name: Perla Pantoja Age: 35 yrs Sex: Female : 1980 Arrival Date: 07/21/2016 Time: 06:34 Bed I5 / M5 Private MD: Disposition: 07/21/16 09:32 Discharged to Home/Self Care. Impression: Hydronephrosis with renal and ureteral calculous obstruction - 2 left distal ureteral stones, largest 4.5 mm. - Condition is Stable. - Discharge Instructions: Kidney Stones. - Prescriptions for Ibuprofen 800 mg Oral Tablet - take 1 tablet by ORAL route every 8 hours As needed take with food; 30 tablet. Percocet 5- 325 mg Oral Tablet - take 1 tablet by ORAL route every 6 hours As needed MDD: 4 tabs; 20 tablet. Flomax 0.4 mg Oral Capsule, Sust. Release 24 hr - take 1 capsule by ORAL route once daily 1/2 hour following the same meal each day; 30 capsule. ZOFRAN ODT 4 mg - dissolve 1 tablet by ORAL route 4 times per day As needed do not chew, do not swallow whole; 10 tablet. - Medication Reconciliation, Local Pharmacy Hours, Work Release Form - 1 day form. - Follow up: Chelsie Scales MD; When: Call to arrange an appointment; Reason: Recheck today's complaints. Follow up: Emergency Department; When: As needed; Reason: Worsening of conditions. - Problem is new. - Symptoms have improved. Historical: - Allergies: No known drug Allergies; - Home Meds: 1. none - PMHx: Kidney stones; - PSHx: ; Cholecystectomy; gall bladder stent; - Social history: Smoking status: Patient states was never smoker of tobacco. No barriers to communication noted, The patient speaks fluent [place]cu[place], Speaks appropriately for age. - Family history: Not pertinent. - : The pt / caregiver states he / she is not on anticoagulants. Home medication list is obtained from the patient. 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 5 in. (165.10 cm); 08:13 BP 144 / 88; Pulse 66; Resp 20; Temp 98.0; Pulse Ox 99% ; Pain 6/10; jam1 09:24 BP 156 / 79; Pulse 65; Resp 18; Temp 97.0; Pulse Ox 99% ; Pain 4/10; jam1 06:43 Body Mass Index 39.94 (108.86 kg, 165.10 cm) cz MDM: 07:05 UCG by Nursing ordered. ar2 07:06 UA Ordered. EDMS 07:06 Urine Culture Ordered. EDMS 07:14 IV Saline Lock ordered. ar2 07:14 ketorolac 30 mg IVP once ordered. ar2 07:14 NS 0.9% 1000 ml IV at bolus once ordered. ar2 07:14 Ondansetron 4 mg IVP once ordered. ar2 07:15 CBC with Diff Ordered. EDMS 07:15 MED Profile Ordered. EDMS 07:15 CT ABD & PELVIS: No Contrast Ordered. EDMS 07:56 Financial registration complete. lg 08:07 CBC with Diff Reviewed. ar2 08:07 MED Profile Reviewed. ar2 08:07 UA Reviewed. ar2 08:17 LIPASE Ordered. EDMS 08:17 LIVER PROFILE Ordered. EDMS 08:38 MED Profile Reviewed. ar2 08:38 LIVER PROFILE Reviewed. ar2 08:38 LIPASE Reviewed. ar2 08:45 morphine 4 mg IVP once ordered. ar2 09:01 [facility] Payment Agreement was scanned into [employer] and attached to record. lg 09:31 Dispense Urine Strainer ordered. ar2 09:34 CT ABD & PELVIS: No Contrast Reviewed. ar2 17:19 Radiology Report was scanned into [employer] and attached to record. kf3 20:45 T-Sheet-- Draft Copy was scanned into [employer] and attached to record. klr 07/23 07:29 Urine Culture Reviewed. sd1 Point of Care Testing: Urine : 07/21 07:19 hCG Reading: Negative; jam1 Ranges: Administered Medications: 07:42 Drug: ketorolac 30 mg [ketorolac 30 mg/mL (1 mL) injection solution (1 mL)] Route: IVP; dls Site: left antecubital; 09:49 Follow up: Response: No Adverse Reaction; Pain is decreased ttb 07:42 Drug: NS 0.9% 1000 ml [sodium chloride 0.9 % intravenous solution] Route: IV; Rate: dls bolus; Site: left antecubital; 09:49 Follow up: IV Status: Completed infusion; IV Intake: 1000ml ttb 07:42 Drug: Ondansetron 4 mg Route: IVP; Site: left antecubital; dls 09:49 Follow up: Response: Nausea is resolved; No Adverse Reaction ttb 08:52 Drug: morphine 4 mg [morphine 4 mg/mL intravenous cartridge (1 mL)] Route: IVP; Site: dls left antecubital; 09:48 Follow up: Response: Confirmed pt not driving.; No Adverse Reaction; Pain is decreased ttb Signatures: Dispatcher [employer] EDMS Queta Moore MD MD sd1 Lexa Wang RN RN cz Eric Oconnor, Reg Reg lg Stanton Condon, Reg Reg kf3 Nish Campuzano PASarah PASarah ar2 Nova Mcgregor RN RN pml Conner, Teresa, RN RN ttb Redder, Kathie klr Scott, Debra RN dls The chart was reviewed and I authenticate all verbal orders and agree with the evaluation and treatment provided.Corrections: (The following items were deleted from the chart) 08:17 08:14 LIVER PROFILE+LAB ordered. EDMS EDMS 08:17 08:14 LIPASE+LAB ordered. EDMS EDMS Attachments: 09:01 [facility] Payment Agreement lg 20:45 T-Sheet-- Draft Copy klr Chart Complete MTDD
--- NOTE | 2016-07-23 12:20 | EDDOCDS ---
Nurse's Notes [facility] Name: Perla Pantoja Age: 35 yrs Sex: Female : 1980 Arrival Date: 07/21/2016 Time: 06:34 Bed I5 / M5 Private MD: Diagnosis: Hydronephrosis with renal and ureteral calculous obstruction-2 left distal ureteral stones, largest 4.5 mm Presentation: 07/21 06:38 Presenting complaint: Patient states: she started with urethral area pain this morning cz pain began last night around 2300. pt states history of kidney stones last one around 7 months ago. Acute neurological deficits are not present. Mechanism of Injury: No Mechanism of Injury. Adult Sepsis Screening: The patient does not have new or worsening altered mentation. Patient's respiratory rate is less than 22. Systolic blood pressure is greater than 100. Patient has a qSOFA score of 0- Negative Sepsis Screen. Suicide/Homicide risk assessment- the patient denies having any suicidal and/or homicidal ideations and does not present with any other emotional, behavioral or mental health complaints. 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 Transition of care: patient was not received from another setting of care. 06:38 Acuity: LIZETH Level 3 cz 06:38 Method Of Arrival: Walkin/Carried/Asstd cz Triage Assessment: 06:43 General: Appears distressed, uncomfortable. Pain: Location: pelvis Pain currently is 8 cz out of 10 on a pain scale. At worst was 9 out of 10 on a pain scale. HIV screening NA for this visit Offered previously. 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 none - PMHx: Kidney stones; - PSHx: ; Cholecystectomy; gall bladder stent; - Social history: Smoking status: Patient states was never smoker of tobacco. No barriers to communication noted, The patient speaks fluent Nepalese, Speaks appropriately for age. - Family history: Not pertinent. - : The pt / caregiver states he / she is not on anticoagulants. Home medication list is obtained from the patient. 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 Screenin:19 Screening information is obtained from the patient. Primary language is Nepalese. Fall jam1 risk: No risks identified. Assistance ADL's: requires no assistance with activities of daily living. Abuse/DV Screen: The patient / caregiver reports he/she is: not in a situation that causes fear, pain or injury. Nutritional screening: No deficits noted. Exposure Risk Screening: None identified. Advance Directives: Currently, there is no health care proxy. There is no active DNR order. There is no living will. There is no Power of Professor Of History. Advance directive information has not previously been placed in an [facility] medical record. Further advance directive information is declined. home support is adequate. Assessment: 07:39 General: Appears in no apparent distress, comfortable, Behavior is appropriate for age, pml cooperative. Pain: Location: pelvis Pain currently is 9 out of 10 on a pain scale. Neurological: Level of Consciousness is awake, alert, Oriented to person, place, time. Cardiovascular: Capillary refill < 3 seconds. Respiratory: Airway is patent Respiratory effort is even, unlabored. GI: Abdomen is non- distended obese. GI: Reports nausea. : Reports pain when bladder is full - states "I can't hold onto any fluids". Derm: Skin is pink, warm & dry. Musculoskeletal: Circulation, motion, and sensation intact Capillary refill < 3 seconds. 08:53 General: Pts pain is 7/10 IV infusing well site clear re-medicated pt per order.. dls 09:46 Reassessment: Patient appears in no apparent distress at this time. Patient states ttb feeling better. Patient states symptoms have improved. pt given urine strainer. States she would prefer to pass on her own as she has done before. Comfortable going home. . General: Appears in no apparent distress. Neurological: Level of Consciousness is awake, alert. Respiratory: Airway is patent Respiratory effort is even, unlabored. GI: Denies nausea, vomiting. Vital Signs: 06:43 BP 133 / 72; Pulse 70; Resp 19; Temp 97.9; Pulse Ox 100% on R/A; Weight 108.86 kg; cz Height 5 ft. 5 in. (165.10 cm); 08:13 BP 144 / 88; Pulse 66; Resp 20; Temp 98.0; Pulse Ox 99% ; Pain 6/10; jam1 09:24 BP 156 / 79; Pulse 65; Resp 18; Temp 97.0; Pulse Ox 99% ; Pain 4/10; jam1 06:43 Body Mass Index 39.94 (108.86 kg, 165.10 cm) cz Vitals: 06:43 Log In Time: July 21, 2016 at 06:34. cz ED Course: 06:35 Patient visited by Suzanne Louis. gjb 06:35 Patient moved to Waiting gjb 06:38 Patient moved to Triage 1 cz 06:43 Triage Initiated cz 06:45 Patient moved to Pre RCE cz 06:58 Patient moved to I5 / M5 jam1 07:05 Pt greeted and oriented to ED. Patient advised of names of staff involved in care, jam1 location of call albert, wait times and NPO status. Patient has correct armband on for positive identification. Placed in gown. Bed in low position. Call light in reach. Side rails up X 1. Door closed. 07:10 Nish Campuzano PA-C is PHCP. ar2 07:10 Stephen Bales DO is Attending Physician. ar2 07:11 Attending Physician role handed off by Stephen Bales DO ar2 07:11 Sukh Wood MD is Attending Physician. ar2 07:11 Patient visited by Nish Campuzano PA-C. ar2 07:12 Urine Culture Sent. jam1 07:12 UA Sent. jam1 07:39 The patient / caregiver is instructed regarding the plan of care and ED course. pml 07:39 Inserted peripheral IV: 20gauge IV in left antecubital area and blood collected. pml Patient tolerated the procedure well. 07:40 Patient visited by Nova Mcgregor RN. pml 08:41 CT ABD & PELVIS: No Contrast Returned. EDMS 08:45 Patient visited by Ivette Boone RN. dls 09:00 Patient name changed from Perla\\S\\Lita\\S\\Pietramala\\S\\ to Perla\\S\\L\\S\\Pietramala. EDMS 09:01 [facility] Payment Agreement was scanned into [employer] and attached to record. lg 09:31 Chelsie Scales MD is Referral Physician. ar2 09:46 Discontinued IV lock intact, bleeding controlled, pressure dressing applied, No ttb redness/swelling at site. No procedures done that require assistance. Labs drawn. (by ED staff). Urine collected. Clean catch specimen. 17:19 Radiology Report was scanned into [employer] and attached to record. kf3 20:45 T-Sheet-- Draft Copy was scanned into [employer] and attached to record. klr Administered Medications: 07:42 Drug: ketorolac 30 mg [ketorolac 30 mg/mL (1 mL) injection solution (1 mL)] Route: IVP; dls Site: left antecubital; 09:49 Follow up: Response: No Adverse Reaction; Pain is decreased ttb 07:42 Drug: NS 0.9% 1000 ml [sodium chloride 0.9 % intravenous solution] Route: IV; Rate: dls bolus; Site: left antecubital; 09:49 Follow up: IV Status: Completed infusion; IV Intake: 1000ml ttb 07:42 Drug: Ondansetron 4 mg Route: IVP; Site: left antecubital; dls 09:49 Follow up: Response: Nausea is resolved; No Adverse Reaction ttb 08:52 Drug: morphine 4 mg [morphine 4 mg/mL intravenous cartridge (1 mL)] Route: IVP; Site: dls left antecubital; 09:48 Follow up: Response: Confirmed pt not driving.; No Adverse Reaction; Pain is decreased ttb Point of Care Testing: Urine : 07:19 hCG Reading: Negative; jam1 Ranges: Intake: 09:49 IV: 1000.00ml; Total: 1000.00ml. ttb Order Results: Lab Order: UA; SPEC'M 07/21/16 07:09 Test: APPEARANCE, URINE; Value: CLEAR; Range: CLEAR; Status: F Test: COLOR, URINE; Value: YELLOW; Range: YELLOW; Status: F Test: PH,URINE; Value: 6.0; Range: 5.0-9.0; Units: UNITS; Status: F Test: SPECIFIC GRAVITY URINE AUTO; Value: 1.018; Range: 1.002-1.035; Status: F Test: PROTEIN, URINE AUTO; Value: NEGATIVE; Range: NEGATIVE; Units: mg/dL; Status: F Test: GLUCOSE, URINE (UA) AUTO; Value: NEGATIVE; Range: NEGATIVE; Units: mg/dL; Status: F Test: KETONE, URINE AUTO; Value: NEGATIVE; Range: NEGATIVE; Units: mg/dL; Status: F Test: UROBILINOGEN, URINE AUTO; Value: 0.2; Range: 0.0-2.0; Units: mg/dL; Status: F Test: BILIRUBIN, URINE AUTO; Value: NEGATIVE; Range: NEGATIVE; Status: F Test: NITRITE, URINE AUTO; Value: NEGATIVE; Range: NEGATIVE; Status: F Test: LEUKOCYTE ESTERASE, URINE AUTO; Value: NEGATIVE; Range: NEGATIVE; Status: F Test: BLOOD, URINE BLOOD; Value: NEGATIVE; Range: NEGATIVE; Status: F Test: WBC, URINE AUTO; Value: 1; Range: 0-3; Units: /HPF; Status: F Test: RBC, URINE AUTO; Value: 3; Range: 0-3; Units: /HPF; Status: F Test: BACTERIA, URINE AUTO; Value: NEGATIVE; Range: NEGATIVE; Status: F Test: SQUAMOUS EPITHELIAL CELL UR AU; Value: 0; Range: 0-6; Units: /HPF; Status: F Test: MUCUS, URINE; Value: SMALL; Range: NEGATIVE; Status: F Test: HYALINE CAST, URINE AUTO; Value: 0; Range: 0-1; Units: /LPF; Status: F Lab Order: Urine Culture; SPEC'M 07/21/16 07:09 Test: URINE CULTURE; Value: <EXTERNAL COMMENT eCWMed> FULL REPORT IN LAB NOTES (eCW and Medent).; Status: F Test: URINE CULTURE; Value: ORGANISM 1: STREP AGALACTIAE GROUP B; Status: F Test: URINE CULTURE; Value: STREP AGALACTIAE GROUP B; Status: F Test: URINE CULTURE; Value: COLONY COUNT CFU/ml 40,000; Status: F Test: URINE CULTURE; Value: GRAM POS SENSI - ST02; Status: F Test: URINE CULTURE; Value: Method: VIT2; Status: F Test: URINE CULTURE; Value: ICR (INDUCIBLE CC RESISTANCE) -; Status: F Test: URINE CULTURE; Value: TETRACYCLINE >=16 R; Status: F Test: URINE CULTURE; Value: PENICILLIN G <=0.06 S; Status: F Test: URINE CULTURE; Value: TRIMETHOPRIM/SULFAMETHOXAZOLE <=10 S; Status: F Test: URINE CULTURE; Value: AMPICILLIN <=0.25 S; Status: F Test: URINE CULTURE; Value: ERYTHROMYCIN >=8 R; Status: F Test: URINE CULTURE; Value: LEVOFLOXACIN 1 S; Status: F Test: URINE CULTURE; Value: VANCOMYCIN 0.5 S; Status: F Test: URINE CULTURE; Value: MOXIFLOXACIN (AVELOX) 0.12 S; Status: F Test: URINE CULTURE; Value: CEFTRIAXONE <=0.12 S; Status: F Test: URINE CULTURE; Value: CEFOTAXIME <=0.12 S; Status: F Lab Order: CBC with Diff; SPEC'M 07/21/16 07:38 Test: WHITE BLOOD COUNT; Value: 5.6; Range: 4.0-10.0; Units: K/mm3; Status: F Test: RED BLOOD COUNT; Value: 3.86; Range: 4.00-5.40; Abnormal: Below low normal; Units: M/mm3; Status: F Test: HEMOGLOBIN; Value: 10.3; Range: 12.0-16.0; Abnormal: Below low normal; Units: g/dl; Status: F Test: HEMATOCRIT; Value: 32.4; Range: 36.0-47.0; Abnormal: Below low normal; Units: %; Status: F Test: MEAN CORPUSCULAR VOLUME; Value: 83.8; Range: 80.0-96.0; Units: fl; Status: F Test: MEAN CORPUSCULAR HEMOGLOBIN; Value: 26.5; Range: 27.0-33.0; Abnormal: Below low normal; Units: pg; Status: F Test: MEAN CORPUSCULAR HGB CONC; Value: 31.6; Range: 32.0-36.5; Abnormal: Below low normal; Units: g/dl; Status: F Test: RED CELL DISTRIBUTION WIDTH; Value: 14.5; Range: 11.5-14.5; Units: %; Status: F Test: PLATELET COUNT, AUTOMATED; Value: 211; Range: 150-450; Units: k/mm3; Status: F Test: NEUTROPHILS %; Value: 55.2; Range: 36.0-66.0; Units: %; Status: F Test: LYMPH %; Value: 30.9; Range: 24.0-44.0; Units: %; Status: F Test: MONO %; Value: 6.0; Range: 0.0-5.0; Abnormal: Above high normal; Units: %; Status: F Test: EOS %; Value: 4.4; Range: 0.0-3.0; Abnormal: Above high normal; Units: %; Status: F Test: BASO %; Value: 0.8; Range: 0.0-1.0; Units: %; Status: F Test: LARGE UNSTAINED CELL %; Value: 2.8; Range: 0.0-4.0; Units: %; Status: F Test: NEUTROPHILS #; Value: 3.1; Range: 1.8-7.7; Units: K/mm3; Status: F Test: LYMPH #; Value: 1.7; Range: 1.5-4.5; Units: K/mm3; Status: F Test: MONO #; Value: 0.3; Range: 0.0-0.8; Units: K/mm3; Status: F Test: EOS #; Value: 0.2; Range: 0.0-0.50; Units: K/mm3; Status: F Test: BASO #; Value: 0.0; Range: 0.0-0.2; Units: K/mm3; Status: F Test: LARGE UNSTAINED CELL #; Value: 0.2; Range: 0.0-0.4; Units: K/mm3; Status: F Lab Order: MED Profile; SPEC'M 07/21/16 07:38 Test: GLUCOSE, FASTING; Value: 91; Range: 70-105; Units: MG/DL; Status: F Test: BLOOD UREA NITROGEN; Value: 12; Range: 7-18; Units: MG/DL; Status: F Test: CREATININE FOR GFR; Value: 0.64; Range: 0.55-1.02; Units: MG/DL; Status: F Test: GLOMERULAR FILTRATION RATE; Value: > 60.0; Range: >60; Status: F Test: SODIUM LEVEL; Value: 143; Range: 136-145; Units: MEQ/L; Status: F Test: POTASSIUM SERUM; Value: 3.7; Range: 3.5-5.1; Units: MEQ/L; Status: F Test: CHLORIDE LEVEL; Value: 109; Range: 98-107; Abnormal: Above high normal; Units: MEQ/L; Status: F Test: CARBON DIOXIDE LEVEL; Value: 29; Range: 21-32; Units: MEQ/L; Status: F Test: ANION GAP; Value: 5; Range: 8-16; Abnormal: Below low normal; Units: MEQ/L; Status: F Test: CALCIUM LEVEL; Value: 8.2; Range: 8.5-10.1; Abnormal: Below low normal; Units: MG/DL; Status: F Test Note: ; Units are mL/min/1.73 m2 Chronic Kidney Disease Staging per NKF: Stage I & II GFR >=60 Normal to Mildly Decreased Stage III GFR 30-59 Moderately Decreased Stage IV GFR 15-29 Severely Decreased Stage V GFR <15 Very Little GFR Left ESRD GFR <15 on MATE FISHING VESSEL Lab Order: LIPASE; SPEC'M 07/21/16 07:38 Test: LIPASE; Value: 193; Range: 73-393; Units: U/L; Status: F Lab Order: LIVER PROFILE; SPEC'M 07/21/16 07:38 Test: AST/SGOT; Value: 6; Range: 15-37; Abnormal: Below low normal; Units: U/L; Status: F Test: ALT/SGPT; Value: 14; Range: 12-78; Units: U/L; Status: F Test: ALKALINE PHOSPHATASE; Value: 50; Range: 45-117; Units: U/L; Status: F Test: BILIRUBIN,TOTAL; Value: 0.4; Range: 0.2-1.0; Units: MG/DL; Status: F Test: BILIRUBIN,DIRECT; Value: < 0.1; Range: 0.0-0.2; Units: MG/DL; Status: F Test: TOTAL PROTEIN; Value: 6.6; Range: 6.4-8.2; Units: GM/DL; Status: F Test: ALBUMIN; Value: 3.2; Range: 3.2-5.2; Units: GM/DL; Status: F Test: ALBUMIN/GLOBULIN RATIO; Value: 0.94; Range: 1.00-1.93; Abnormal: Below low normal; Status: F Radiology Order: CT ABD & PELVIS: No Contrast Test: CT ABD & PELVIS: No Contrast REASON FOR EXAMINATION: Renal colic; ; CLINICAL HISTORY: Abdominal pain.; TECHNIQUE: Multiple axial, sagittal and coronal CT images were obtained through the abdomen and pelvi; s without administration of oral or IV contrast material.; COMMENTS:; Comparison is made to the prior exam performed on 01/03/2014.; The liver is of uniform attenuation without mass or defect. There is no intra or extrahepatic biliary; ductal dilatation. The spleen is normal. The gallbladder is surgically absent. The pancreas is of no; rmal contour and attenuation characteristics. There is no evidence of adrenal mass.; 2 obstructing stones in the distal aspect of the left ureter with the largest measuring 4.5 mm. Mild; left hydroureteronephrosis.; There is no evidence for appendicitis. There is no bowel wall thickening. No evidence for small or la; rge bowel obstruction. There is no evidence of abdominal ascites or lymphadenopathy.; There is no evidence of intrinsic or extrinsic bladder mass. There is no pelvic ascites or lymphadeno; raymundo. Thickened bladder.; Images of the lung bases show no evidence of pleural or parenchymal mass. There are no pleural effusi; ons.; The bony structures are free of lytic or blastic lesions. Multilevel degenerative changes are seen in; volving the thoracolumbar spine.; Scattered calcifications are seen involving the aorta and major branches compatible with atherosclero; sis.; IMPRESSION:; 2 obstructing stones in the distal left ureter.; Mild left hydroureteronephrosis.; Surgically absent gallbladder.; Left nephrolithiasis.; Moderate large bowel fecal stasis.; Thank you for your kind referral of this patient.; ; Outcome: 09:32 Discharge ordered by Provider. ar2 09:46 Discharge Assessment: Patient awake, alert and oriented x 3. No cognitive and/or ttb functional deficits noted. Patient verbalized understanding of disposition instructions. Patient awake and alert. patient administered narcotics - yes. Pt provided with safe discharge. The following High Risk Discharge criteria are identified: None. Discharged to home ambulatory. Condition: good Condition: stable Condition: improved. Discharge instructions given to patient, Instructed on discharge instructions, follow up and referral plans. medication usage, no driving heavy equipment, diet, no drinking with medication, Demonstrated understanding of instructions, medications, no d/d with narcs, increase fluid intake, strain urine. Pt was receptive of discharge instructions/ teaching. Prescriptions given X 4, Work note provided to patient. CT Study completed. Property :Personal belongings accompany Pt. 09:49 Patient left the ED. ttb Addendum: 07/23/2016 11:27 Narrative: Urine culture results reviewed with Dr. Squires and report to be faxed to [facility] ([place]). Signatures: Dispatcher [employer] Kalina Urbina RN RN kcs Scott, Debra, RN RN dls Zecher, Calvin, RN RN cz Murphy, Jane, CHEMISTRY TEACHER CHEMISTRY TEACHER jam1 Eric Oconnor, Reg Reg lg FidStanton sorenson, Reg Reg kf3 Nish Campuzano, PA-C PA-C ar2 Nova Mcgregor RN RN pml Conner, Teresa, RN RN ttb Beck, Gabriela gjb Redder, Kathie klr Chart Complete MTDD
== END 2016-07-21 09:49 | disposition home or self-care (01) ==
LOC: M ED 06:34
DX: N13.2 Hydronephrosis with renal and ureteral calculous obstruction (principal)
CPT/HCPCS: 36415; 74176; 80048; 80076; 81001; 81025; 83690; 85025; 87088; 87186; 96361; 96374; 96375; 99284; J1885; J2405

== ENCOUNTER → 2016-12-17 | Outpatient (CLI) | payer OTHER ==
[2016-12-17 14:46] LABS: BASO % 0.7 % (0.0-1.0); EOS # 0.2 K/mm3 (0.0-0.50); EOS % 3.8 % (0.0-3.0); LARGE UNSTAINED CELL # 0.1 K/mm3 (0.0-0.4); LARGE UNSTAINED CELL % 2.2 % (0.0-4.0); LYMPH # 1.9 K/mm3 (1.5-4.5); LYMPH % 33.2 % (24.0-44.0); MEAN CORPUSCULAR HEMOGLOBIN 27.1 pg (27.0-33.0); MEAN CORPUSCULAR HGB CONC 31.9 g/dl (32.0-36.5); MONO # 0.4 K/mm3 (0.0-0.8); MONO % 6.8 % (0.0-5.0); NEUTROPHILS # 2.8 K/mm3 (1.8-7.7); NEUTROPHILS % 53.3 % (36.0-66.0); PLATELET COUNT, AUTOMATED 209 k/mm3 (150-450); RED CELL DISTRIBUTION WIDTH 14.3 % (11.5-14.5); WHITE BLOOD COUNT 5.3 K/mm3 (4.0-10.0)
[2016-12-17 15:05] LABS: ALBUMIN 3.4 GM/DL (3.2-5.2); ALBUMIN/GLOBULIN RATIO 0.97 (1.00-1.93); ALKALINE PHOSPHATASE 46 U/L (45-117); ALT/SGPT 15 U/L (12-78); ANION GAP 6 MEQ/L (8-16); AST/SGOT 10 U/L (15-37); BILIRUBIN,TOTAL 0.5 MG/DL (0.2-1.0); BLOOD UREA NITROGEN 9 MG/DL (7-18); CALCIUM LEVEL 8.3 MG/DL (8.5-10.1); CARBON DIOXIDE LEVEL 28 MEQ/L (21-32); CHLORIDE LEVEL 108 MEQ/L (98-107); CREATININE FOR GFR 0.71 MG/DL (0.55-1.02); FREE T4 0.97 NG/DL (0.76-1.46); GLOMERULAR FILTRATION RATE > 60.0 (>60); GLUCOSE, FASTING 87 MG/DL (70-105); POTASSIUM SERUM 3.8 MEQ/L (3.5-5.1); SODIUM LEVEL 142 MEQ/L (136-145); TOTAL PROTEIN 6.9 GM/DL (6.4-8.2); VITAMIN B12 LEVEL 253 PG/ML (247-911)
== END ==
LOC: M WUC 09:02
PROVIDERS: ATTEND Physician Assistant
DX: F41.8 Other specified anxiety disorders (principal)

== ENCOUNTER 2017-02-10 07:33 | Emergency (ER) | payer OTHER ==
[~2017-02-10] VITALS: Ht 165.1 cm; Wt 122.7 kg
[2017-02-10 07:48] VITALS: BP 133/78
[2017-02-10] MEDS ORDERED: KETOROLAC 60 MG/2 ML VIAL (J1885) IM ONE (08:00)
--- NOTE | 2017-02-10 08:12 | REP ---
CT of the cervical spine: Axial images are acquired with helical scanning and are reformatted in sagittal and coronal projections. The occipital condyles and C1-C2 are unremarkable. Vertebral body heights and alignment are normal. The facets are normally aligned. Prevertebral soft tissues are normal. There are no posterior element fractures. There is degenerative disc disease at C4-5 and C5-6. Impression: There is no fracture or listhesis. Signed by Joey Hinson MD 02/10/2017 08:03 A
[2017-02-10] MEDS ORDERED: XANA0.25 PO (08:21)
[2017-02-10] MEDS ORDERED: PROZ10CA7 PO (08:21)
[2017-02-10] MEDS ORDERED: NAPR500T PO (08:36)
[2017-02-10] MEDS ORDERED: CYCL5TAB PO (08:36)
[2017-02-10] MEDS ORDERED: NORCOTAB PO (08:36)
== END 2017-02-10 08:48 | disposition home or self-care (01) ==
LOC: M ED 07:33 → EDBD 07:33 → M ED 08:48
DX: S13.4XXA Sprain of ligaments of cervical spine, initial encounter (principal); V43.52XA Car driver injured in collision with other type car in traffic accident, initial encounter; Y92.410 Unspecified street and highway as the place of occurrence of the external cause; Y93.9 Activity, unspecified; Y99.9 Unspecified external cause status; F41.9 Anxiety disorder, unspecified; F32.9 Major depressive disorder, single episode, unspecified; F17.200 Nicotine dependence, unspecified, uncomplicated; Z79.899 Other long term (current) drug therapy
CPT/HCPCS: 72125; 96372; 99283; J1885

== ENCOUNTER → 2017-03-21 | Outpatient (REF) | payer MEDICAID, OTHER ==
[~2017-03-21] MED LIST changes: +CYCL5TAB PO; +NAPR500T PO; +NORCOTAB PO; +PROZ10CA7 PO; +XANA0.25 PO
[2017-03-21 15:55] LABS: ALBUMIN 3.5 GM/DL (3.2-5.2); ALBUMIN/GLOBULIN RATIO 1.03 (1.00-1.93); ALKALINE PHOSPHATASE 50 U/L (45-117); ALT/SGPT 16 U/L (12-78); ANION GAP 8 MEQ/L (8-16); AST/SGOT 7 U/L (15-37); BILIRUBIN,TOTAL 0.8 MG/DL (0.2-1.0); BLOOD UREA NITROGEN 12 MG/DL (7-18); CALCIUM LEVEL 8.3 MG/DL (8.5-10.1); CARBON DIOXIDE LEVEL 28 MEQ/L (21-32); CHLORIDE LEVEL 107 MEQ/L (98-107); CHOLESTEROL LEVEL 205 MG/DL (<200); CREATININE FOR GFR 0.64 MG/DL (0.55-1.02); FERRITIN 10 NG/ML (8-252); GLOMERULAR FILTRATION RATE > 60.0 (>60); GLUCOSE, FASTING 79 MG/DL (70-105); POTASSIUM SERUM 3.9 MEQ/L (3.5-5.1); SODIUM LEVEL 143 MEQ/L (136-145); TOTAL PROTEIN 6.9 GM/DL (6.4-8.2); TRIGLYCERIDES LEVEL 98 MG/DL (<150)
[2017-03-21 17:03] LABS: BASO % 0.6 % (0.0-1.0); EOS # 0.2 K/mm3 (0.0-0.50); EOS % 3.3 % (0.0-3.0); LARGE UNSTAINED CELL # 0.1 K/mm3 (0.0-0.4); LARGE UNSTAINED CELL % 1.9 % (0.0-4.0); LYMPH # 1.5 K/mm3 (1.5-4.5); LYMPH % 26.4 % (24.0-44.0); MEAN CORPUSCULAR HEMOGLOBIN 30.2 pg (27.0-33.0); MEAN CORPUSCULAR HGB CONC 34.2 g/dl (32.0-36.5); MEAN CORPUSCULAR VOLUME 88.2 fl (80.0-96.0); MONO # 0.3 K/mm3 (0.0-0.8); MONO % 5.4 % (0.0-5.0); NEUTROPHILS # 3.6 K/mm3 (1.8-7.7); NEUTROPHILS % 62.4 % (36.0-66.0); PLATELET COUNT, AUTOMATED 212 k/mm3 (150-450); RED CELL DISTRIBUTION WIDTH 13.5 % (11.5-14.5); WHITE BLOOD COUNT 5.8 K/mm3 (4.0-10.0)
== END ==
LOC: M SFHCSACK 08:02
PROVIDERS: ATTEND Physician Assistant
DX: D64.9 Anemia, unspecified (principal); F32.9 Major depressive disorder, single episode, unspecified; Z13.220 Encounter for screening for lipoid disorders; E55.9 Vitamin D deficiency, unspecified

== ENCOUNTER → 2017-06-25 | Outpatient (CLI) | payer OTHER, MEDICAID ==
[2017-06-25 16:51] LABS: BASO # 0.1 10^3/uL (0.0-0.2); BASO % 0.7 % (0.0-1.0); EOS # 0.2 10^3/uL (0.0-0.50); EOS % 2.4 % (0.0-3.0); IMMATURE GRANULOCYTE % 0.2 % (0-0); LYMPH # 1.8 10^3/uL (1.5-4.5); LYMPH % 21.3 % (24.0-44.0); MEAN CORPUSCULAR HEMOGLOBIN 28.8 pg (27.0-33.0); MEAN CORPUSCULAR HGB CONC 31.7 g/dl (32.0-36.5); MEAN CORPUSCULAR VOLUME 90.8 fl (80.0-96.0); MONO # 0.7 10^3/uL (0.0-0.8); MONO % 7.8 % (0.0-5.0); NEUTROPHILS # 5.6 10^3/uL (1.8-7.7); NEUTROPHILS % 67.6 % (36.0-66.0); PLATELET COUNT, AUTOMATED 281 10^3/uL (150-450); RED CELL DISTRIBUTION WIDTH 12.4 % (11.5-14.5); WHITE BLOOD COUNT 8.3 10^3/uL (4.0-10.0)
[2017-06-25 17:16] LABS: ALBUMIN 3.7 GM/DL (3.2-5.2); ALBUMIN/GLOBULIN RATIO 0.97 (1.00-1.93); ALKALINE PHOSPHATASE 58 U/L (45-117); ALT/SGPT 19 U/L (12-78); ANION GAP 7 MEQ/L (8-16); AST/SGOT 9 U/L (7-37); BILIRUBIN,TOTAL 0.5 MG/DL (0.2-1.0); BLOOD UREA NITROGEN 13 MG/DL (7-18); CALCIUM LEVEL 8.8 MG/DL (8.5-10.1); CARBON DIOXIDE LEVEL 29 MEQ/L (21-32); CHLORIDE LEVEL 107 MEQ/L (98-107); CHOLESTEROL LEVEL 214 MG/DL (<200); CREATININE FOR GFR 0.65 MG/DL (0.55-1.02); GLOMERULAR FILTRATION RATE > 60.0 (>60); GLUCOSE, FASTING 87 MG/DL (70-105); POTASSIUM SERUM 4.6 MEQ/L (3.5-5.1); SODIUM LEVEL 143 MEQ/L (136-145); TOTAL PROTEIN 7.5 GM/DL (6.4-8.2); TRIGLYCERIDES LEVEL 74 MG/DL (<150)
== END ==
LOC: M WUC 11:37
DX: F32.9 Major depressive disorder, single episode, unspecified (principal); E78.2 Mixed hyperlipidemia; E55.9 Vitamin D deficiency, unspecified
CPT/HCPCS: 80053

== ENCOUNTER 2017-09-04 16:51 | Emergency (ER) | payer OTHER, MEDICAID | END 2017-09-04 18:33 | disposition home or self-care (01) | LOC: M ED 16:51 | DX: L02.511 Cutaneous abscess of right hand (principal) | CPT/HCPCS: 99283 ==

== ENCOUNTER 2017-10-03 19:25 | Emergency (ER) | payer OTHER ==
[2017-10-03] MEDS: METHOCARBAMOL 750 MG TAB PO (22:34)
[2017-10-03] MEDS: NORCO 5/325MG TABLET (BULK FOR ED) PO (22:34)
== END 2017-10-03 22:38 | disposition home or self-care (01) ==
LOC: M ED 19:25
DX: S46.912A Strain of unspecified muscle, fascia and tendon at shoulder and upper arm level, left arm, initial encounter (principal); X58.XXXA Exposure to other specified factors, initial encounter; Y92.018 Other place in single-family (private) house as the place of occurrence of the external cause; M77.00 Medial epicondylitis, unspecified elbow
CPT/HCPCS: 73030

== ENCOUNTER → 2017-10-30 | Outpatient (CLI) | payer OTHER | LOC: M RAD 13:40 | DX: S49.92XA Unspecified injury of left shoulder and upper arm, initial encounter (principal); X58.XXXA Exposure to other specified factors, initial encounter; Y92.89 Other specified places as the place of occurrence of the external cause | CPT/HCPCS: 73030 ==

== ENCOUNTER 2018-01-18 17:56 | Emergency (ER) | payer OTHER ==
[2018-01-18 18:56] LABS: KETONE, URINE AUTO RFX NEGATIVE (NEGATIVE); LEUKOCYTE ESTERASE UR AUTO RFX NEGATIVE (NEGATIVE); NITRITE, URINE AUTO RFX NEGATIVE (NEGATIVE); RBC, URINE AUTO RFX 1 /HPF (0-3); SPECIFIC GRAVITY UR AUTO RFX 1.003 (1.002-1.035); SQUAM EPITHELIAL CELL UR AURFX 1 /HPF (0-6); WBC, URINE AUTO RFX 1 /HPF (0-3)
[2018-01-18] MEDS: KETOROLAC 30 MG/ML VIAL (J1885) IV (19:00)
[2018-01-18] MEDS: ONDANSETRON 4MG/2ML VIAL (J2405) IV (19:00)
[2018-01-18] MEDS: NS 1,000 ML IV (19:00)
[2018-01-18 19:16] LABS: BASO # 0.1 10^3/uL (0.0-0.2); BASO % 0.7 % (0.0-1.0); EOS # 0.3 10^3/uL (0.0-0.50); EOS % 3.3 % (0.0-3.0); IMMATURE GRANULOCYTE % 0.4 % (0-3.0); LYMPH # 2.4 10^3/uL (1.5-4.5); LYMPH % 28.8 % (24.0-44.0); MEAN CORPUSCULAR HEMOGLOBIN 27.6 pg (27.0-33.0); MEAN CORPUSCULAR HGB CONC 32.4 g/dl (32.0-36.5); MEAN CORPUSCULAR VOLUME 85.3 fl (80.0-96.0); MONO # 0.6 10^3/uL (0.0-0.8); NEUTROPHILS % 59.8 % (36.0-66.0); PLATELET COUNT, AUTOMATED 277 10^3/uL (150-450); RED BLOOD COUNT 4.34 10^6/uL (4.00-5.40); RED CELL DISTRIBUTION WIDTH 13.8 % (11.5-14.5); WHITE BLOOD COUNT 8.3 10^3/uL (4.0-10.0)
[2018-01-18 19:34] LABS: ANION GAP 9 MEQ/L (8-16); BLOOD UREA NITROGEN 10 MG/DL (7-18); CALCIUM LEVEL 8.8 MG/DL (8.5-10.1); CARBON DIOXIDE LEVEL 27 MEQ/L (21-32); CHLORIDE LEVEL 105 MEQ/L (98-107); CREATININE FOR GFR 0.66 MG/DL (0.55-1.30); GLOMERULAR FILTRATION RATE > 60.0 (>60); GLUCOSE, FASTING 86 MG/DL (70-100); POTASSIUM SERUM 3.8 MEQ/L (3.5-5.1); SODIUM LEVEL 141 MEQ/L (136-145)
[2018-01-18] MEDS: MORPHINE 4 MG/ML 1ML VIAL/SYRINGE (J2270) IV (20:30)
[2018-01-18] MEDS: PHENAZOPYRIDINE 100 MG TAB PO (21:15)
[2018-01-18] MEDS: NITROFURANTOIN (MACROBID) 100 MG CAP PO (21:15)
== END 2018-01-18 21:35 | disposition home or self-care (01) ==
LOC: M ED 17:56
DX: N39.0 Urinary tract infection, site not specified (principal); M54.9 Dorsalgia, unspecified; Z87.442 Personal history of urinary calculi
CPT/HCPCS: J2270

== ENCOUNTER 2018-02-01 17:01 | Emergency (ER) | payer OTHER ==
[2018-02-01 17:33] LABS: KETONE, URINE AUTO RFX NEGATIVE (NEGATIVE); LEUKOCYTE ESTERASE UR AUTO RFX NEGATIVE (NEGATIVE); NITRITE, URINE AUTO RFX NEGATIVE (NEGATIVE); RBC, URINE AUTO RFX 2 /HPF (0-3); SPECIFIC GRAVITY UR AUTO RFX 1.006 (1.002-1.035); SQUAM EPITHELIAL CELL UR AURFX 4 /HPF (0-6); WBC, URINE AUTO RFX 3 /HPF (0-3)
[2018-02-01] MEDS: MORPHINE 4 MG/ML 1ML VIAL/SYRINGE (J2270) IV ×3 (17:41→18:53)
[2018-02-01] MEDS: ONDANSETRON 4MG/2ML VIAL (J2405) IV (17:41)
[2018-02-01] MEDS: NS 1,000 ML IV (17:41)
[2018-02-01 17:50] LABS: BASO # 0.1 10^3/uL (0.0-0.2); BASO % 0.7 % (0.0-1.0); EOS # 0.3 10^3/uL (0.0-0.50); HEMATOCRIT 38.2 % (36.0-47.0); HEMOGLOBIN 12.3 g/dl (12.0-15.5); IMMATURE GRANULOCYTE % 0.5 % (0-3.0); LYMPH # 2.3 10^3/uL (1.5-4.5); LYMPH % 27.2 % (24.0-44.0); MEAN CORPUSCULAR HEMOGLOBIN 27.8 pg (27.0-33.0); MEAN CORPUSCULAR HGB CONC 32.2 g/dl (32.0-36.5); MEAN CORPUSCULAR VOLUME 86.2 fl (80.0-96.0); MONO # 0.7 10^3/uL (0.0-0.8); MONO % 7.6 % (0.0-5.0); NEUTROPHILS # 5.2 10^3/uL (1.8-7.7); PLATELET COUNT, AUTOMATED 239 10^3/uL (150-450); RED BLOOD COUNT 4.43 10^6/uL (4.00-5.40); RED CELL DISTRIBUTION WIDTH 13.8 % (11.5-14.5); WHITE BLOOD COUNT 8.5 10^3/uL (4.0-10.0)
[2018-02-01 18:10] LABS: ALBUMIN 3.8 GM/DL (3.2-5.2); ALBUMIN/GLOBULIN RATIO 0.86 (1.00-1.93); ALKALINE PHOSPHATASE 51 U/L (45-117); ALT/SGPT 22 U/L (12-78); ANION GAP 8 MEQ/L (8-16); AST/SGOT 12 U/L (7-37); BILIRUBIN,DIRECT 0.1 MG/DL (0.0-0.2); BILIRUBIN,TOTAL 0.6 MG/DL (0.2-1.0); BLOOD UREA NITROGEN 12 MG/DL (7-18); CALCIUM LEVEL 8.8 MG/DL (8.5-10.1); CARBON DIOXIDE LEVEL 25 MEQ/L (21-32); CHLORIDE LEVEL 107 MEQ/L (98-107); CREATININE FOR GFR 0.86 MG/DL (0.55-1.30); GLOMERULAR FILTRATION RATE > 60.0 (>60); GLUCOSE, FASTING 98 MG/DL (70-100); LIPASE 185 U/L (73-393); POTASSIUM SERUM 3.7 MEQ/L (3.5-5.1); SODIUM LEVEL 140 MEQ/L (136-145); TOTAL PROTEIN 8.2 GM/DL (6.4-8.2)
[2018-02-01] MEDS: KETOROLAC 30 MG/ML VIAL (J1885) IV (18:24)
[2018-02-01] MEDS: PERCOCET 5MG/325MG TAB PO (20:26)
[2018-02-01] MEDS: ONDANSETRON 4 MG ORAL DISINTEGRATING TAB (Q0162 PER 1MG) PO (20:26)
[2018-02-01] MEDS: OXYCODONE/APAP 5MG/325MG(BULK FOR ED) 1 TABLET PO (20:28)
== END 2018-02-01 20:36 | disposition home or self-care (01) ==
LOC: M ED 17:01
DX: N20.1 Calculus of ureter (principal); N13.39 Other hydronephrosis; N15.1 Renal and perinephric abscess; Z87.442 Personal history of urinary calculi
CPT/HCPCS: J2270

== ENCOUNTER → 2018-08-19 | Outpatient (CLI) | payer OTHER ==
[~2018-08-19] MED LIST changes: +BACT800T5 PO; +FLOM0.4C39 PO; +IBUP-1022 PO; +KEFL500C17 PO; +MACR100C43 PO; +NAPR-50 PO; +NAPR-885 PO; -NAPR500T PO; +PERC5TAB12 PO; +PYRI1TAB5 PO; +ROBA500T PO; +ZOFR4TAB14 PO
[2018-08-20 15:29] LABS: CHLAMYDIA DNA AMPLIFICATION NEGATIVE (NEGATIVE); GC DNA AMPLIFICATION NEGATIVE (NEGATIVE)
[2018-08-21 16:43] LABS: HEPATITIS C VIRUS ABY INDEX < 0.0 INDEX (<0.8); HIV 1&2 SCREEN CENTAUR NEGATIVE (NEGATIVE)
== END ==
LOC: M WUC 14:44
PROVIDERS: ATTEND Physician Assistant
DX: Z11.3 Encounter for screening for infections with a predominantly sexual mode of transmission (principal); Z20.828 Contact with and (suspected) exposure to other viral communicable diseases

== ENCOUNTER 2019-01-22 12:36 | Emergency (ER) | payer OTHER ==
[~2019-01-22] VITALS: Ht 165.1 cm; Wt 133.7 kg
[~2019-01-22 12:36] MED LIST changes: +HYDR-3715 PO; -NAPR-50 PO; +NAPR-837 PO; -NORCOTAB PO; +OXYC1TAB23 PO; -PERCOCET PO
[2019-01-22] MEDS ORDERED: KETOROLAC 30 MG/ML VIAL (J1885) IV ONE (13:15)
[2019-01-22] MEDS ORDERED: METOCLOPRAMIDE INJ 10MG/2ML VIAL (J2765) IV ONE (13:15)
[2019-01-22] MEDS ORDERED: diphenhydrAMINE INJ 50MG/ML VIAL (J1200) IV STA (13:15)
[2019-01-22] MEDS ORDERED: NS 1,000 ML IV ONE (13:15)
[2019-01-22] MEDS ORDERED: MAG SULF 1GM/100ML (MAG RUN) 1 GM in APPROPRIATE DILUENT 1 EA IV ONE (15:15)
[2019-01-22 16:23] VITALS: BP 104/53
== END 2019-01-22 17:13 | disposition home or self-care (01) ==
LOC: M ED 12:36
DX: G43.909 Migraine, unspecified, not intractable, without status migrainosus (principal)
CPT/HCPCS: 96361; 96365; 96366; 96375; 99284; J1200; J1885; J2765; J3475

== ENCOUNTER 2019-03-10 17:56 | Emergency (ER) | payer OTHER ==
[~2019-03-10] VITALS: Ht 165.1 cm; Wt 135.2 kg
[2019-03-10] MEDS ORDERED: LIDO1CRE2 TOP (19:52)
[2019-03-10] MEDS ORDERED: NAPR-837 PO (19:52)
[2019-03-10] MEDS ORDERED: ROBA750T4 PO (19:52)
[2019-03-10] MEDS ORDERED: KETOROLAC 60 MG/2 ML VIAL (J1885) IM ONE (20:00)
[2019-03-10] MEDS ORDERED: METHOCARBAMOL 750 MG TAB PO ONE (20:00)
[2019-03-10 20:17] VITALS: BP 132/84
== END 2019-03-10 20:19 | disposition home or self-care (01) ==
LOC: M ED 17:56
DX: M25.78 Osteophyte, vertebrae (principal); M50.20 Other cervical disc displacement, unspecified cervical region; G43.909 Migraine, unspecified, not intractable, without status migrainosus
CPT/HCPCS: 96372; 99283; J1885

== ENCOUNTER → 2019-04-22 | Outpatient (REF) | payer OTHER ==
[~2019-04-22] MED LIST changes: +LIDO1CRE2 TOP; +ROBA750T4 PO
[2019-04-22 16:45] LABS: BASO # 0.1 10^3/uL (0.0-0.2); BASO % 0.9 % (0.0-1.0); EOS # 0.3 10^3/uL (0.0-0.5); EOS % 4.8 % (0.0-3.0); HEMATOCRIT 33.6 % (36.0-47.0); HEMOGLOBIN 10.2 g/dl (12.0-15.5); LYMPH # 1.4 10^3/uL (1.5-5.0); LYMPH % 24.4 % (24.0-44.0); MEAN CORPUSCULAR HEMOGLOBIN 25.8 pg (27.0-33.0); MEAN CORPUSCULAR HGB CONC 30.4 g/dl (32.0-36.5); MEAN CORPUSCULAR VOLUME 84.8 fl (80.0-96.0); MONO # 0.7 10^3/uL (0.0-0.8); MONO % 11.5 % (0.0-5.0); NEUTROPHILS # 3.4 10^3/uL (1.5-8.5); NEUTROPHILS % 57.7 % (36.0-66.0); PLATELET COUNT, AUTOMATED 230 10^3/uL (150-450); RED BLOOD COUNT 3.96 10^6/uL (4.00-5.40); WHITE BLOOD COUNT 5.8 10^3/uL (4.0-10.0)
[2019-04-22 16:53] LABS: ALBUMIN 3.5 GM/DL (3.2-5.2); ALT/SGPT 24 U/L (12-78); BILIRUBIN,TOTAL 0.4 MG/DL (0.2-1.0); BLOOD UREA NITROGEN 13 MG/DL (7-18); CALCIUM LEVEL 8.6 MG/DL (8.5-10.1); CARBON DIOXIDE LEVEL 29 MEQ/L (21-32); CHLORIDE LEVEL 106 MEQ/L (98-107); CHOLESTEROL LEVEL 226 MG/DL (<200); CREATININE FOR GFR 0.76 MG/DL (0.55-1.30); GLOMERULAR FILTRATION RATE > 60.0 (>58); GLUCOSE, FASTING 94 MG/DL (70-100); HDL CHOLESTEROL 50 MG/DL (>40); LDL CHOLESTEROL 148 MG/DL (<100); NON-HDL-C 176 MG/DL; POTASSIUM SERUM 4.3 MEQ/L (3.5-5.1); SODIUM LEVEL 142 MEQ/L (136-145); TOTAL PROTEIN 6.8 GM/DL (6.4-8.2); TRIGLYCERIDES LEVEL 140 MG/DL (<150)
[2019-04-22 16:56] LABS: TOTAL 25(OH) VITAMIN D 19.6 NG/ML (30.0-100.0)
== END ==
LOC: M SFHCSACK 09:43
PROVIDERS: ATTEND Physician Assistant
DX: E78.2 Mixed hyperlipidemia (principal); F32.9 Major depressive disorder, single episode, unspecified; E55.9 Vitamin D deficiency, unspecified

== ENCOUNTER → 2019-07-14 | Outpatient (CLI) | payer OTHER ==
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
== END ==
LOC: M PAIN 10:15
PROVIDERS: ATTEND Family Medicine
DX: M79.18 Myalgia, other site (principal)

== ENCOUNTER → 2019-07-21 | Outpatient (CLI) | payer OTHER ==
[~2019-07-21] MED LIST changes: +BUPIVACAINE HCL 0.25% 30 ML VIAL As Ordered ONE; +NORCO, ANEXSIA 5/325MG TABLET (HYDROcodone/ACETAMINOPHEN) As Ordered ONE; +TRIAMCINOLONE ACETONIDE SUSP 40 MG/ML VIAL (J3301) As Ordered ONE; +diazePAM 2 MG TAB As Ordered ONE; +diazePAM 5 MG TAB As Ordered ONE; +oxyCODONE 5MG TAB As Ordered ONE
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
== END ==
LOC: M PAIN 14:45
PROVIDERS: ATTEND Anesthesiology
DX: M79.18 Myalgia, other site (principal); Z86.59 Personal history of other mental and behavioral disorders; G43.909 Migraine, unspecified, not intractable, without status migrainosus; E66.01 Morbid (severe) obesity due to excess calories; Z68.43 Body mass index [BMI] 50.0-59.9, adult
CPT/HCPCS: 20553; J3301

== ENCOUNTER → 2019-08-05 | Outpatient (CLI) | payer OTHER ==
[~2019-08-05] MED LIST changes: -BUPIVACAINE HCL 0.25% 30 ML VIAL As Ordered ONE; -NORCO, ANEXSIA 5/325MG TABLET (HYDROcodone/ACETAMINOPHEN) As Ordered ONE; -TRIAMCINOLONE ACETONIDE SUSP 40 MG/ML VIAL (J3301) As Ordered ONE; -diazePAM 2 MG TAB As Ordered ONE; -diazePAM 5 MG TAB As Ordered ONE; -oxyCODONE 5MG TAB As Ordered ONE
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
== END ==
LOC: M PAIN 10:30
PROVIDERS: ATTEND Family Medicine
DX: M79.18 Myalgia, other site (principal); R51 Headache; M50.10 Cervical disc disorder with radiculopathy, unspecified cervical region

== ENCOUNTER → 2019-08-30 | Outpatient (CLI) | payer OTHER ==
[~2019-08-30] MED LIST changes: +ISOVUE-M 300 61% 15ML VIAL (Q9967) As Ordered ONE; +LIDOCAINE 1% SDV INJ 30 ML VIAL As Ordered ONE; +NORCO, ANEXSIA 5/325MG TABLET (HYDROcodone/ACETAMINOPHEN) As Ordered ONE; +diazePAM 2 MG TAB As Ordered ONE; +methylPREDNISolone SUSP 40 MG/ML (DEPO-medrol) VIAL (J1030) As Ordered ONE
--- NOTE | 2019-08-30 19:02 | REP ---
Cervicothoracic spine: Two views. History: Injection procedure for pain. 22 seconds of fluoroscopy time is reported. Findings: A sequence of two last image hold fluoroscopically obtained spot radiographs of the cervicothoracic junction document needle position and contrast injection associated with injection procedure. Electronically Signed by Kirby Bethea MD 08/30/2019 06:54 P
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
== END ==
LOC: M PAIN 14:00
PROVIDERS: ATTEND Anesthesiology
DX: M50.10 Cervical disc disorder with radiculopathy, unspecified cervical region (principal); F41.9 Anxiety disorder, unspecified; G43.909 Migraine, unspecified, not intractable, without status migrainosus; F31.9 Bipolar disorder, unspecified; Z79.899 Other long term (current) drug therapy; Z88.8 Allergy status to other drugs, medicaments and biological substances
CPT/HCPCS: 62321; J1030; Q9967

== ENCOUNTER → 2019-09-13 | Outpatient (CLI) | payer MEDICARE ==
[~2019-09-13] MED LIST changes: -ISOVUE-M 300 61% 15ML VIAL (Q9967) As Ordered ONE; -LIDOCAINE 1% SDV INJ 30 ML VIAL As Ordered ONE; -NORCO, ANEXSIA 5/325MG TABLET (HYDROcodone/ACETAMINOPHEN) As Ordered ONE; -diazePAM 2 MG TAB As Ordered ONE; -methylPREDNISolone SUSP 40 MG/ML (DEPO-medrol) VIAL (J1030) As Ordered ONE
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
== END ==
LOC: M PAIN 09:45
PROVIDERS: ATTEND Family Medicine
DX: M50.10 Cervical disc disorder with radiculopathy, unspecified cervical region (principal); Z86.59 Personal history of other mental and behavioral disorders; G43.909 Migraine, unspecified, not intractable, without status migrainosus; Z91.09 Other allergy status, other than to drugs and biological substances; E66.01 Morbid (severe) obesity due to excess calories; Z68.43 Body mass index [BMI] 50.0-59.9, adult; Z79.899 Other long term (current) drug therapy

== ENCOUNTER → 2019-10-18 | Outpatient (CLI) | payer MEDICARE, OTHER ==
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
== END ==
LOC: M TMPAIN 11:30 → M PAIN 11:30
PROVIDERS: ATTEND Family Medicine
DX: M50.10 Cervical disc disorder with radiculopathy, unspecified cervical region (principal); R51 Headache; Z79.899 Other long term (current) drug therapy; Z88.8 Allergy status to other drugs, medicaments and biological substances

== ENCOUNTER → 2020-03-27 | Outpatient (CLI) | payer OTHER ==
[~2020-03-27] MED LIST changes: +BUSP10TA PO; +CIPR-249 PO; +LAMI1TAB9 PO; +LATU40TA PO; +LITH300C PO; +TRAZ-189 PO; +ZOFR4TAB16 PO
== END ==
LOC: M PAIN 11:22
PROVIDERS: ATTEND Family Medicine
DX: M79.18 Myalgia, other site (principal)

== ENCOUNTER 2020-03-29 18:37 | Emergency (ER) | payer OTHER ==
[~2020-03-29] VITALS: Ht 165.1 cm; Wt 127.3 kg
[~2020-03-29 18:37] MED LIST changes: -BUSP10TA PO; -CIPR-249 PO; -LAMI1TAB9 PO; -LATU40TA PO; -LITH300C PO; -TRAZ-189 PO; -ZOFR4TAB16 PO
[2020-03-29] MEDS ORDERED: LITH300C PO (18:49)
[2020-03-29] MEDS ORDERED: LATU40TA PO (18:49)
[2020-03-29] MEDS ORDERED: BUSP10TA PO (18:49)
[2020-03-29] MEDS ORDERED: LAMI1TAB9 PO (18:49)
[2020-03-29] MEDS ORDERED: TRAZ-189 PO (18:49)
--- NOTE | 2020-03-29 19:58 | REPVR ---
PROCEDURE INFORMATION: Exam: XR Chest, 2 Views Exam date and time: 03/29/2020 7:48 PM Age: 39 years old Clinical indication: Fever TECHNIQUE: Imaging protocol: XR of the chest Views: 2 views. COMPARISON: No relevant prior studies available. FINDINGS: Lungs: Degree of inflation of the lungs is normal. No evidence of pulmonary edema. No focal airspace process. No concerning parenchymal lung mass. Pleural space: No pleural effusion or pneumothorax. Heart/Mediastinum: Cardiac silhouette appears normal. No mediastinal adenopathy or hilar mass. Bones/joints: Osseous structures show no acute or concerning abnormality. IMPRESSION: No active or focal cardiopulmonary process. Electronically signed by: Deuce Livingston On 03/29/2020 19:58:26 PM
[2020-03-29] MEDS ORDERED: IBUPROFEN 100 MG/5 ML SUSP UDC DYE FREE PO ONE (20:00)
[2020-03-29] MEDS ORDERED: METOCLOPRAMIDE INJ 10MG/2ML VIAL (J2765 PER 1) IV ONE (20:00)
[2020-03-29] MEDS ORDERED: NS 1,000 ML IV ONE (20:00)
[2020-03-29] MEDS ORDERED: ACETAMINOPHEN 650 MG SUPP PR ONE (20:00)
[2020-03-29 20:03] LABS: BASO % 0.3 % (0.0-1.0); EOS % 0.3 % (0.0-3.0); HEMATOCRIT 33.9 % (36.0-47.0); HEMOGLOBIN 10.2 g/dl (12.0-15.5); LYMPH # 0.6 10^3/uL (1.5-5.0); LYMPH % 5.5 % (24.0-44.0); MEAN CORPUSCULAR HEMOGLOBIN 24.6 pg (27.0-33.0); MEAN CORPUSCULAR HGB CONC 30.1 g/dl (32.0-36.5); MEAN CORPUSCULAR VOLUME 81.7 fl (80.0-96.0); MONO # 0.3 10^3/uL (0.0-0.8); MONO % 2.4 % (0.0-5.0); NEUTROPHILS # 9.4 10^3/uL (1.5-8.5); NEUTROPHILS % 90.8 % (36.0-66.0); PLATELET COUNT, AUTOMATED 271 10^3/uL (150-450); RED BLOOD COUNT 4.15 10^6/uL (4.00-5.40); WHITE BLOOD COUNT 10.3 10^3/uL (4.0-10.0)
[2020-03-29 20:09] LABS: ALBUMIN 3.4 GM/DL (3.2-5.2); CALCIUM LEVEL 8.6 MG/DL (8.5-10.1); CREATININE FOR GFR 1.16 MG/DL (0.55-1.30); GLOMERULAR FILTRATION RATE 54.8 (>58); LITHIUM LEVEL 0.51 MEQ/L (0.60-1.20); POTASSIUM SERUM 4.3 MEQ/L (3.5-5.1); TOTAL PROTEIN 7.1 GM/DL (6.4-8.2)
[2020-03-29] MEDS ORDERED: CIPROFLOXACIN 400 MG in IV 1 EA IV ONE (20:45)
[2020-03-29] MEDS ORDERED: CIPR-249 PO (21:27)
[2020-03-29] MEDS ORDERED: ZOFR4TAB16 PO (21:27)
[2020-03-29 22:41] VITALS: BP 122/71
== END 2020-03-29 22:43 | disposition home or self-care (01) ==
LOC: EDBD 18:37 → M ED 18:37
DX: N10 Acute pyelonephritis (principal); R50.9 Fever, unspecified; G43.909 Migraine, unspecified, not intractable, without status migrainosus; Z79.899 Other long term (current) drug therapy
CPT/HCPCS: 71046; 80053; 80178; 81001; 83605; 85025; 87040; 87077; 87088; 87186; 96365; 96375; 99284; J0744; J2765

== ENCOUNTER → 2020-04-25 | Outpatient (CLI) | payer MEDICARE ==
[~2020-04-25] MED LIST changes: +BUSP10TA PO; +CIPR-249 PO; +LAMI1TAB9 PO; +LATU40TA PO; +LITH300C PO; +TRAZ-189 PO; +ZOFR4TAB16 PO
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
== END ==
LOC: M PAIN 11:15
PROVIDERS: ATTEND Family Medicine
DX: M50.10 Cervical disc disorder with radiculopathy, unspecified cervical region (principal); F41.9 Anxiety disorder, unspecified; F32.9 Major depressive disorder, single episode, unspecified; G43.909 Migraine, unspecified, not intractable, without status migrainosus; Z79.899 Other long term (current) drug therapy; Z88.8 Allergy status to other drugs, medicaments and biological substances

== ENCOUNTER → 2020-05-29 | Outpatient (CLI) | payer MEDICARE ==
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
== END ==
LOC: M PAIN 13:30
PROVIDERS: ATTEND Family Medicine
DX: M50.10 Cervical disc disorder with radiculopathy, unspecified cervical region (principal); F41.9 Anxiety disorder, unspecified; F32.9 Major depressive disorder, single episode, unspecified; G43.909 Migraine, unspecified, not intractable, without status migrainosus; Z79.899 Other long term (current) drug therapy; Z88.8 Allergy status to other drugs, medicaments and biological substances

== ENCOUNTER → 2020-06-27 | Outpatient (CLI) | payer MEDICARE ==
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
== END ==
LOC: M PAIN 13:30
PROVIDERS: ATTEND Family Medicine
DX: M50.10 Cervical disc disorder with radiculopathy, unspecified cervical region (principal); G89.29 Other chronic pain; G43.909 Migraine, unspecified, not intractable, without status migrainosus; Z86.59 Personal history of other mental and behavioral disorders; Z91.09 Other allergy status, other than to drugs and biological substances; E66.01 Morbid (severe) obesity due to excess calories; Z68.42 Body mass index [BMI] 45.0-49.9, adult; Z79.899 Other long term (current) drug therapy

== ENCOUNTER → 2020-07-27 | Outpatient (CLI) | payer OTHER | LOC: M LABSMTC 09:52 | PROVIDERS: ATTEND Anesthesiology | DX: Z20.822 Contact with and (suspected) exposure to COVID-19 (principal) ==

== ENCOUNTER → 2020-08-01 | Outpatient (CLI) | payer MEDICARE ==
[~2020-08-01] MED LIST changes: +ISOVUE-M 300 61% 15ML VIAL As Ordered ONE; +LIDOCAINE 1% SDV 30ML VIAL As Ordered ONE; +NORCO, ANEXSIA 5/325MG TABLET (HYDROcodone/ACETAMINOPHEN) As Ordered ONE; +diazePAM 2 MG TAB As Ordered ONE; +methylPREDNISolone SUSP 40MG/ML 1ML VIAL (DEPO MEDROL) As Ordered ONE
--- NOTE | 2020-08-01 13:41 | REP ---
INDICATION: CERVICAL EPIDURAL. COMPARISON: None. TECHNIQUE: Three views. 13 seconds of fluoroscopy time is reported. FINDINGS: A sequence of 3 last image hold fluoroscopically obtained spot radiograph(s) of the cervical spine document(s) needle position(s) and contrast injection associated with injection procedure. IMPRESSION: Procedural imaging. <Electronically signed by Ravi Bethea > 08/01/20 [id number]
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
== END ==
LOC: M PAIN 11:00
PROVIDERS: ATTEND Anesthesiology
DX: M50.10 Cervical disc disorder with radiculopathy, unspecified cervical region (principal); G43.909 Migraine, unspecified, not intractable, without status migrainosus; Z86.59 Personal history of other mental and behavioral disorders; Z91.09 Other allergy status, other than to drugs and biological substances; E66.01 Morbid (severe) obesity due to excess calories; Z68.43 Body mass index [BMI] 50.0-59.9, adult; Z79.899 Other long term (current) drug therapy
CPT/HCPCS: 62321; J1030; Q9967

== ENCOUNTER → 2020-09-29 | Outpatient (CLI) | payer MEDICARE ==
[~2020-09-29] MED LIST changes: -ISOVUE-M 300 61% 15ML VIAL As Ordered ONE; -LIDOCAINE 1% SDV 30ML VIAL As Ordered ONE; -NORCO, ANEXSIA 5/325MG TABLET (HYDROcodone/ACETAMINOPHEN) As Ordered ONE; -diazePAM 2 MG TAB As Ordered ONE; -methylPREDNISolone SUSP 40MG/ML 1ML VIAL (DEPO MEDROL) As Ordered ONE
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
== END ==
LOC: M PAIN 11:00
PROVIDERS: ATTEND Family Medicine
DX: M50.10 Cervical disc disorder with radiculopathy, unspecified cervical region (principal); G89.29 Other chronic pain; G43.909 Migraine, unspecified, not intractable, without status migrainosus; Z86.59 Personal history of other mental and behavioral disorders; Z91.09 Other allergy status, other than to drugs and biological substances; E66.01 Morbid (severe) obesity due to excess calories; Z68.43 Body mass index [BMI] 50.0-59.9, adult; Z79.899 Other long term (current) drug therapy

== ENCOUNTER → 2020-10-27 | Outpatient (CLI) | payer MEDICARE ==
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
== END ==
LOC: M PAIN 11:00
PROVIDERS: ATTEND Family Medicine
DX: M50.30 Other cervical disc degeneration, unspecified cervical region (principal); G89.29 Other chronic pain; G43.909 Migraine, unspecified, not intractable, without status migrainosus; Z86.59 Personal history of other mental and behavioral disorders; Z91.09 Other allergy status, other than to drugs and biological substances; E66.01 Morbid (severe) obesity due to excess calories; Z68.43 Body mass index [BMI] 50.0-59.9, adult; Z79.899 Other long term (current) drug therapy

== ENCOUNTER → 2021-01-23 | Outpatient (CLI) | payer MEDICARE ==
[2021-01-23 13:27] LABS: ALBUMIN 3.3 GM/DL (3.2-5.2); ALT/SGPT 28 U/L (12-78); BILIRUBIN,TOTAL 0.5 MG/DL (0.2-1.0); BLOOD UREA NITROGEN 10 MG/DL (7-18); CALCIUM LEVEL 8.8 MG/DL (8.5-10.1); CARBON DIOXIDE LEVEL 28 MEQ/L (21-32); CHLORIDE LEVEL 111 MEQ/L (98-107); CREATININE FOR GFR 0.89 MG/DL (0.55-1.30); FREE T4 0.86 NG/DL (0.76-1.46); GLOMERULAR FILTRATION RATE > 60.0 (>58); GLUCOSE, FASTING 93 MG/DL (70-100); LITHIUM LEVEL 0.55 MEQ/L (0.60-1.20); POTASSIUM SERUM 4.2 MEQ/L (3.5-5.1); SODIUM LEVEL 142 MEQ/L (136-145); TOTAL PROTEIN 6.9 GM/DL (6.4-8.2)
== END ==
LOC: M WUC 11:05
PROVIDERS: ATTEND Nurse Practitioner Psychiatric/Mental Health
DX: F31.81 Bipolar II disorder (principal)
CPT/HCPCS: 36415; 80053; 80178; 84439; 84443; G0480

== ENCOUNTER 2021-08-04 09:08 | Emergency (ER) | payer MEDICARE ==
[~2021-08-04] VITALS: Ht 165.1 cm; Wt 125.0 kg
[~2021-08-04 09:08] MED LIST changes: -LATU40TA PO; +LATU40TA2 PO
[2021-08-04] MEDS ORDERED: AMOX875T (09:17)
[2021-08-04] MEDS ORDERED: AMPICILLIN SOD/SULBACTAM SOD 3 GM in D5W MINI-BAG PLUS 100 ML IV ONE (09:35)
[2021-08-04] MEDS ORDERED: dexameTHASONE 20MG/5ML VIAL (J1100 PER 1MG) IV ONE (09:35)
[2021-08-04 09:53] LABS: BASO # 0.1 10^3/uL (0.0-0.2); BASO % 0.7 % (0.0-1.0); EOS # 0.4 10^3/uL (0.0-0.5); EOS % 3.9 % (0.0-3.0); HEMATOCRIT 33.5 % (36.0-47.0); LYMPH # 1.5 10^3/uL (1.5-5.0); LYMPH % 16.6 % (24.0-44.0); MEAN CORPUSCULAR HEMOGLOBIN 24.5 pg (27.0-33.0); MEAN CORPUSCULAR HGB CONC 29.9 g/dl (32.0-36.5); MEAN CORPUSCULAR VOLUME 82.1 fl (80.0-96.0); MONO # 0.6 10^3/uL (0.0-0.8); MONO % 6.6 % (2.0-8.0); NEUTROPHILS # 6.4 10^3/uL (1.5-8.5); NEUTROPHILS % 71.8 % (36.0-66.0); PLATELET COUNT, AUTOMATED 255 10^3/uL (150-450); RED BLOOD COUNT 4.08 10^6/uL (4.00-5.40)
[2021-08-04] MEDS ORDERED: KETOROLAC 30 MG/ML 1ML VIAL IV ONE (10:20)
[2021-08-04 10:46] VITALS: BP 120/74
== END 2021-08-04 10:48 | disposition home or self-care (01) ==
LOC: M ED 09:08
DX: K04.7 Periapical abscess without sinus (principal); K08.89 Other specified disorders of teeth and supporting structures; D64.9 Anemia, unspecified; G43.909 Migraine, unspecified, not intractable, without status migrainosus; Z87.442 Personal history of urinary calculi; Z79.899 Other long term (current) drug therapy
CPT/HCPCS: 36415; 80047; 84702; 85025; 96365; 96375; 99284; J1100; J1885

== ENCOUNTER → 2021-10-31 | Outpatient (REF) ==
[~2021-10-31] MED LIST changes: +AMOX875T
== END ==
LOC: M LAB 12:00
PROVIDERS: ATTEND Nurse Practitioner Adult Health
DX: Z00.00 Encounter for general adult medical examination without abnormal findings (principal)

== ENCOUNTER 2021-12-14 20:23 | Emergency (ER) | payer MEDICARE ==
[~2021-12-14] VITALS: Ht 165.1 cm; Wt 137.3 kg
[2021-12-15] MEDS ORDERED: KETOROLAC TROMETHAMINE 10 MG TAB PO ONE (01:50)
[2021-12-15] MEDS ORDERED: CIPROFLOXACIN 500MG TABLET PO ONE (02:00)
[2021-12-15] MEDS ORDERED: HYDR-3713 PO ×3 (06:22→16:26)
[2021-12-15] MEDS ORDERED: MACR100C43 PO (06:22)
[2021-12-15] MEDS ORDERED: NORCO, ANEXSIA 5/325MG TABLET (HYDROcodone/ACETAMINOPHEN) PO ONE (06:25)
[2021-12-15] MEDS ORDERED: MORPHINE 2 MG/ML 1ML VIAL IV ONE (06:25)
[2021-12-15] MEDS ORDERED: FLOM0.4C39 PO (06:27)
[2021-12-15 07:40] VITALS: BP 117/63
== END 2021-12-15 07:51 | disposition home or self-care (01) ==
LOC: M ED 20:23
DX: N39.0 Urinary tract infection, site not specified (principal); N20.0 Calculus of kidney; N28.89 Other specified disorders of kidney and ureter; M43.06 Spondylolysis, lumbar region; E66.9 Obesity, unspecified; Z87.442 Personal history of urinary calculi; Z79.899 Other long term (current) drug therapy
CPT/HCPCS: 74176; 80047; 81001; 84702; 87088; 87186; 96374; 99283; J2270

== ENCOUNTER → 2021-12-18 | Outpatient (CLI) | payer MEDICARE ==
[~2021-12-18] MED LIST changes: +HYDR-3713 PO
[2021-12-18 15:50] LABS: HEMATOCRIT 31.9 % (36.0-47.0); HEMOGLOBIN 9.2 g/dl (12.0-15.5); MEAN CORPUSCULAR HEMOGLOBIN 22.6 pg (27.0-33.0); MEAN CORPUSCULAR HGB CONC 28.8 g/dl (32.0-36.5); MEAN CORPUSCULAR VOLUME 78.4 fl (80.0-96.0); PLATELET COUNT, AUTOMATED 344 10^3/uL (150-450); RED BLOOD COUNT 4.07 10^6/uL (4.00-5.40); WHITE BLOOD COUNT 10.2 10^3/uL (4.0-10.0)
[2021-12-18 16:14] LABS: BLOOD UREA NITROGEN 8 MG/DL (7-18); CALCIUM LEVEL 8.7 MG/DL (8.5-10.1); CARBON DIOXIDE LEVEL 27 MEQ/L (21-32); CHLORIDE LEVEL 103 MEQ/L (98-107); CREATININE FOR GFR 0.92 MG/DL (0.55-1.30); GLOMERULAR FILTRATION RATE > 60.0 (>58); GLUCOSE, FASTING 94 MG/DL (70-100); POTASSIUM SERUM 3.9 MEQ/L (3.5-5.1); SODIUM LEVEL 139 MEQ/L (136-145)
== END ==
LOC: M LAB 15:12
PROVIDERS: ATTEND Specialist
DX: Z01.818 Encounter for other preprocedural examination (principal); Z79.899 Other long term (current) drug therapy

== ENCOUNTER 2021-12-19 10:59 | Day surgery (SDC) | payer MEDICARE ==
[~2021-12-19] VITALS: Ht 165.1 cm; Wt 135.1 kg
[~2021-12-19 10:59] MED LIST changes: +LR 1,000 ML IV SCH
[2021-12-19] MEDS ORDERED: VANCOMYCIN HCL 1,000 MG, VIAL MATE ADAPTER 1 EACH in NS 250 ML IV SCH (12:00)
[2021-12-19] MEDS ORDERED: VANCOMYCIN HCL 1,000 MG, VIAL MATE ADAPTER 1 EACH in NS 250 ML IV ONE (12:00)
[2021-12-19] MEDS ORDERED: GENTAMICIN 80 MG in IV 1 EA IV ONE (12:00)
[2021-12-19] MEDS ORDERED: ISOVUE-300 61% 50ML VIAL As Ordered ONE (13:40)
[2021-12-19] MEDS ORDERED: propofoL 200 MG/20 ML VIAL As Ordered ONE (13:42)
[2021-12-19] MEDS ORDERED: dexameTHASONE 4 MG/ML 1ML VIAL (J1100 PER 1MG) As Ordered ONE (13:42)
[2021-12-19] MEDS ORDERED: LIDOCAINE 2% 100MG/5ML SDV (FOR ANES.) As Ordered ONE (13:42)
[2021-12-19] MEDS ORDERED: ONDANSETRON 4MG 2ML VIAL As Ordered ONE (13:42)
[2021-12-19] MEDS ORDERED: MIDAZOLAM INJ 2MG/2ML VIAL (J2250 PER 1MG) As Ordered ONE (13:43)
[2021-12-19] MEDS ORDERED: ROCURONIUM BROMIDE 50 MG/5 ML VIAL As Ordered ONE (13:43)
[2021-12-19] MEDS ORDERED: fentaNYL 100 MCG/2 ML INJECTION As Ordered ONE (13:43)
[2021-12-19] MEDS ORDERED: KETOROLAC 60MG 2ML VIAL As Ordered ONE (13:47)
[2021-12-19] MEDS ORDERED: LR 1,000 ML IV SCH (15:05)
[2021-12-19] MEDS ORDERED: MORPHINE 2 MG/ML 1ML VIAL IV PRN (15:05)
[2021-12-19] MEDS ORDERED: ONDANSETRON 4MG 2ML VIAL IV PRN (15:05)
[2021-12-19] MEDS: fentaNYL 100 MCG/2 ML INJECTION IV PRN ×4 (15:13→15:28)
[2021-12-19] MEDS: oxyCODONE 5MG TAB PO PRN ×2 (15:15→15:45)
[2021-12-19 15:52] VITALS: BP 137/70
[2021-12-27 19:07] LABS: Size 6x4 mm (.)
== END 2021-12-19 16:30 | disposition home or self-care (01) ==
LOC: M SDC 10:59
PROVIDERS: ATTEND Urology
DX: N20.2 Calculus of kidney with calculus of ureter (principal); I10 Essential (primary) hypertension; R07.9 Chest pain, unspecified; E78.5 Hyperlipidemia, unspecified; E11.9 Type 2 diabetes mellitus without complications; J44.9 Chronic obstructive pulmonary disease, unspecified; D64.9 Anemia, unspecified; G25.81 Restless legs syndrome; K21.9 Gastro-esophageal reflux disease without esophagitis; G47.33 Obstructive sleep apnea (adult) (pediatric); Z79.84 Long term (current) use of oral hypoglycemic drugs; Z79.899 Other long term (current) drug therapy; Z79.51 Long term (current) use of inhaled steroids; Z88.5 Allergy status to narcotic agent; Z88.8 Allergy status to other drugs, medicaments and biological substances
CPT/HCPCS: 52356; 74420; 82365; 87426; C1769; C1894; C2617; J1100; J1580; J1885; J2250; J2405; J3010; J3370; Q9967

== ENCOUNTER 2022-07-07 16:28 | Emergency (ER) | payer MEDICARE ==
[~2022-07-07] VITALS: Ht 165.1 cm; Wt 143.5 kg
[2022-07-07 16:28] VITALS: BP 170/90
[~2022-07-07 16:28] MED LIST changes: -LR 1,000 ML IV SCH
== END 2022-07-07 21:47 | disposition left against medical advice (07) ==
LOC: M ED 16:28
DX: Z53.21 Procedure and treatment not carried out due to patient leaving prior to being seen by health care provider (principal)

== ENCOUNTER 2022-11-23 19:09 | Emergency (ER) | payer MEDICARE ==
[~2022-11-23] VITALS: Ht 165.1 cm; Wt 143.3 kg
[2022-11-23] MEDS ORDERED: HYDR-3363 (19:20)
[2022-11-23] MEDS ORDERED: LURA80TA (19:20)
[2022-11-23] MEDS ORDERED: LAMO100T3 (19:20)
[2022-11-23] MEDS ORDERED: BUSP30TA (19:20)
[2022-11-23] MEDS ORDERED: methocarbamoL 500 MG TAB PO ONE (23:05)
[2022-11-23] MEDS ORDERED: IBUPROFEN 600MG TAB PO ONE (23:05)
[2022-11-24] MEDS ORDERED: METH-1164 PO (00:10)
[2022-11-24] MEDS ORDERED: IBUP-1022 PO (00:10)
[2022-11-24] MEDS ORDERED: MEDR4PAK PO (00:10)
[2022-11-24 00:30] VITALS: BP 128/80
== END 2022-11-24 00:45 | disposition home or self-care (01) ==
LOC: M ED 19:09
DX: S13.4XXA Sprain of ligaments of cervical spine, initial encounter (principal); Y92.009 Unspecified place in unspecified non-institutional (private) residence as the place of occurrence of the external cause; Y93.89 Activity, other specified; G43.909 Migraine, unspecified, not intractable, without status migrainosus; Z87.442 Personal history of urinary calculi; Z79.899 Other long term (current) drug therapy

== ENCOUNTER 2023-09-23 14:48 | Inpatient (IN) | payer MEDICAID, MEDICARE, OTHER ==
[~2023-09-23] VITALS: Ht 165.1 cm; Wt 142.0 kg
[~2023-09-23 14:48] MED LIST changes: +BUSP30TA PO; +HYDR-3363 PO; +LAMO100T3 PO; +LURA80TA PO; +MEDR4PAK PO; +METH-1164 PO
[2023-09-23] MEDS ORDERED: ALBU8.5H INH (15:32)
[2023-09-23 15:42] LABS: AMPHETAMINES LEVEL URINE NEGATIVE (NEGATIVE); BARBITURATES URINE NEGATIVE (NEGATIVE); BENZODIAZEPINES URINE NEGATIVE (NEGATIVE); COCAINE METABOLITE URINE NEGATIVE (NEGATIVE); METHADONE URINE NEGATIVE (NEGATIVE); OPIATES URINE NEGATIVE (NEGATIVE); PHENCYCLIDINE URINE NEGATIVE (NEGATIVE)
[2023-09-23 15:46] LABS: CANNABINOIDS URINE POSITIVE (NEGATIVE)
[2023-09-23 15:47] LABS: HEMATOCRIT 34.2 % (36.0-47.0); MEAN CORPUSCULAR HEMOGLOBIN 22.5 pg (27.0-33.0); MEAN CORPUSCULAR HGB CONC 29.2 g/dl (32.0-36.5); PLATELET COUNT, AUTOMATED 347 10^3/uL (150-450); RED BLOOD COUNT 4.44 10^6/uL (4.00-5.40); WHITE BLOOD COUNT 9.5 10^3/uL (4.0-10.0)
[2023-09-23 16:08] LABS: ETHYL ALCOHOL (ETHANOL) < 0.003 % (0.000-0.010)
[2023-09-23 16:10] LABS: ALBUMIN 3.5 G/DL (3.2-5.2); ALKALINE PHOSPHATASE 63 U/L (46-116); ALT/SGPT 25 U/L (7.0-40); AST/SGOT 15 U/L (<34); BILIRUBIN,DIRECT 0.1 MG/DL (<0.4); BILIRUBIN,TOTAL 0.5 MG/DL (0.3-1.2); BLOOD UREA NITROGEN 9 MG/DL (9-23); CARBON DIOXIDE LEVEL 29 MMOL/L (20-31); CHLORIDE LEVEL 103 MMOL/L (98-107); CREATININE FOR GFR 0.71 MG/DL (0.55-1.30); GLOMERULAR FILTRATION RATE > 60.0 (>58); GLUCOSE, FASTING 100 MG/DL (60-100); HCG, SERUM QUALITATIVE NEGATIVE (NEGATIVE); LITHIUM LEVEL < 0.10 MMOL/L (1.0-1.20); POTASSIUM SERUM 3.9 MMOL/L (3.5-5.1); SALICYLATE LEVEL < 3.0 MG/DL (<30); SODIUM LEVEL 137 MMOL/L (136-145); TOTAL PROTEIN 6.9 G/DL (5.7-8.2)
[2023-09-23 16:12] LABS: THYROID STIMULATING HORMONE 1.473 uIU/ML (0.55-4.78)
[2023-09-23] MEDS: ONDANSETRON 4MG ORAL DISINTEGRATING TAB PO ONE (17:06)
[2023-09-23] MEDS: LORazepam 0.5 MG TAB PO STA (17:06)
[2023-09-23] MEDS ORDERED: ACETAMINOPHEN TAB 650MG DOSE (2X325MG) PO PRN (19:10)
[2023-09-23] MEDS ORDERED: diphenhydrAMINE 25MG CAP PO PRN (19:10)
[2023-09-23] MEDS ORDERED: LITH300C PO (20:02)
[2023-09-23] MEDS ORDERED: HOME MED LIST COMPLETE! XX SCH (20:05)
[2023-09-23] MEDS: MAALOX 30 ML SUSP *UDC PO PRN (22:48)
[2023-09-23 23:06] VITALS: BP 148/70; TEMP 97.4; O2SAT 99
[2023-09-24] MEDS: traZODone 50 MG TAB PO PRN (00:32)
[2023-09-24 06:55] VITALS: BP 160/81; TEMP 98.8; O2SAT 95
[2023-09-24] MEDS ORDERED: ALBUTEROL 90 MCG/ACT 8GM HFA INHALER INH PRN (08:50)
[2023-09-24] MEDS: lamoTRIgine 25MG TAB PO SCH (09:13)
[2023-09-24] MEDS: LITHIUM CARBONATE 300 MG CAP PO SCH (09:13)
[2023-09-24] MEDS: busPIRone 10 MG TAB PO SCH (09:14)
[2023-09-24] MEDS: LOSARTAN 25 MG TAB PO SCH (15:07)
[2023-09-24] MEDS: LURASIDONE HCL 40MG TAB (LATUDA) PO SCH (17:34)
[2023-09-24] MEDS: MOM 30ML SUSPENSION UDC PO PRN (18:07)
[2023-09-24 18:17] VITALS: BP 150/72; TEMP 96.8
[2023-09-24] MEDS: LITHIUM CARBONATE 600MG CAP PO SCH (20:20)
[2023-09-24] MEDS: traZODone 50 MG TAB PO SCH (20:21)
[2023-09-25 06:23] VITALS: BP 138/63; TEMP 98.1; O2SAT 97
[2023-09-25 07:28] LABS: CHOLESTEROL RISK RATIO 5.54 (<5); HDL CHOLESTEROL 39.7 MG/DL (>40); LDL CHOLESTEROL 152.1 MG/DL (<100); NON-HDL-C 180.3 MG/DL
[2023-09-25 07:53] LABS: HEMOGLOBIN A1c 5.6 % (4.0-6.0)
[2023-09-25 16:56] VITALS: BP 137/75; TEMP 98.1; O2SAT 100
[2023-09-25] MEDS: IBUPROFEN 400MG TAB PO PRN (20:15)
[2023-09-26 06:03] VITALS: BP 121/69; TEMP 98.3; O2SAT 100
[2023-09-26] MEDS ORDERED: LOSA-527 PO (07:30)
[2023-09-26] MEDS ORDERED: LITH300C PO (07:30)
[2023-09-26] MEDS ORDERED: LAMI25TA PO (07:30)
[2023-09-26] MEDS ORDERED: BUSP10TA PO (07:30)
[2023-09-26] MEDS ORDERED: LATU40TA2 PO (07:30)
[2023-09-26] MEDS ORDERED: TRAZ-252 PO (07:30)
[2023-09-26] MEDS ORDERED: LITH600C PO (07:30)
[2023-09-26] MEDS ORDERED: HYDR-3363 PO (07:31)
[2023-09-26 08:11] VITALS: BP 131/62
[2023-09-26] MEDS ORDERED: BUSP30TA PO (09:20)
== END 2023-09-26 11:40 | disposition home or self-care (01) | DRG 753 ==
LOC: M ED 14:48 → M ED INP 19:08 → M PSY 22:09
PROVIDERS: ADMIT Psychiatry & Neurology Psychiatry; ATTEND Psychiatry & Neurology Psychiatry
DX: F31.9 Bipolar disorder, unspecified (principal); Z68.43 Body mass index [BMI] 50.0-59.9, adult; I10 Essential (primary) hypertension; E66.01 Morbid (severe) obesity due to excess calories; F43.10 Post-traumatic stress disorder, unspecified; F41.9 Anxiety disorder, unspecified; G43.909 Migraine, unspecified, not intractable, without status migrainosus; Z79.899 Other long term (current) drug therapy; Z11.52 Encounter for screening for COVID-19

== ENCOUNTER 2023-12-11 13:26 | Emergency (ER) | payer MEDICAID, OTHER ==
[~2023-12-11] VITALS: Ht 165.1 cm; Wt 138.6 kg
[~2023-12-11 13:26] MED LIST changes: +ALBU8.5H INH; +LAMI25TA PO; +LITH600C PO; +LOSA-527 PO; +TRAZ-252 PO
[2023-12-11] MEDS: traMADol 50 MG TAB PO ONE (17:10)
[2023-12-11] MEDS: ACETAMINOPHEN 325 MG TAB PO ONE (17:12)
[2023-12-11 17:31] LABS: BASO # 0.1 10^3/uL (0.0-0.2); BASO % 0.8 % (0.0-1.0); EOS # 0.4 10^3/uL (0.0-0.5); EOS % 3.3 % (0.0-3.0); HEMATOCRIT 40.2 % (36.0-47.0); HEMOGLOBIN 12.3 g/dl (12.0-15.5); LYMPH # 2.2 10^3/uL (1.5-5.0); LYMPH % 16.9 % (24.0-44.0); MEAN CORPUSCULAR HEMOGLOBIN 26.2 pg (27.0-33.0); MEAN CORPUSCULAR HGB CONC 30.6 g/dl (32.0-36.5); MEAN CORPUSCULAR VOLUME 85.7 fl (80.0-96.0); MONO # 0.8 10^3/uL (0.0-0.8); MONO % 5.9 % (2.0-8.0); NEUTROPHILS # 9.5 10^3/uL (1.5-8.5); NEUTROPHILS % 72.8 % (36.0-66.0); PLATELET COUNT, AUTOMATED 331 10^3/uL (150-450); RED BLOOD COUNT 4.69 10^6/uL (4.00-5.40); WHITE BLOOD COUNT 13.1 10^3/uL (4.0-10.0)
[2023-12-11 17:40] LABS: ERYTHROCYTE SEDIMENTATION RATE 47 mm/hr (0-20)
[2023-12-11 18:02] LABS: CPK CREATINE PHOSPHOKINASE 88 U/L (34-145)
[2023-12-11 18:05] LABS: BLOOD UREA NITROGEN 10 MG/DL (9-23); CALCIUM LEVEL 9.1 MG/DL (8.5-10.1); CARBON DIOXIDE LEVEL 27 MMOL/L (20-31); CHLORIDE LEVEL 103 MMOL/L (98-107); CREATININE FOR GFR 0.87 MG/DL (0.55-1.30); GLOMERULAR FILTRATION RATE > 60.0 (>58); GLUCOSE, FASTING 92 MG/DL (60-100); POTASSIUM SERUM 3.9 MMOL/L (3.5-5.1); SODIUM LEVEL 137 MMOL/L (136-145)
[2023-12-11] MEDS ORDERED: TRAM50TA2 PO (18:30)
[2023-12-11 18:45] VITALS: BP 138/77; TEMP 97.7; O2SAT 98
== END 2023-12-11 18:48 | disposition home or self-care (01) ==
LOC: M ED 13:26
DX: S76.112A Strain of left quadriceps muscle, fascia and tendon, initial encounter (principal); S83.92XA Sprain of unspecified site of left knee, initial encounter; X50.0XXA Overexertion from strenuous movement or load, initial encounter; G43.909 Migraine, unspecified, not intractable, without status migrainosus; D64.9 Anemia, unspecified; F43.10 Post-traumatic stress disorder, unspecified; F31.9 Bipolar disorder, unspecified; F32.A Depression, unspecified; Z90.89 Acquired absence of other organs; Z87.442 Personal history of urinary calculi; Z79.52 Long term (current) use of systemic steroids; Z79.811 Long term (current) use of aromatase inhibitors; Z79.899 Other long term (current) drug therapy; Y92.9 Unspecified place or not applicable; Y93.9 Activity, unspecified; Y99.9 Unspecified external cause status